=== PATIENT | female | born 1950 | race Caucasian/White ===

== ENCOUNTER 2017-07-04 12:34 | Emergency (ER) | payer MEDICARE, SELFPAY ==
[2017-07-04 13:25] VITALS: BP 147/81; PULSE 76; RESP 18; TEMP 36.6; O2SAT 97; BMI 26.5
--- NOTE | 2017-07-04 13:33 | HMH.EDGENADL ---
ED Disposition Clinical Impression: Inner ear disease Disposition: Home, Self-Care Condition on Discharge: Fair Instructions: Vertigo Prescriptions: Meclizine HCl [Antivert 25mg tablet] 25 mg PO TID 30 Days #90 tablet Referrals: Dakota Osullivan MD [Primary Care Provider] - Time of Disposition: 15:16 - Critical Care Critical Care Time: No Attestation: On 07/04/17, the high probability of a clinically significant, sudden or life threatening deterioration of the following system(s) required my full and direct attention, intervention and personal management. The time I documented below is in addition to time spent performing reported procedures but includes the following listed in this critical care notation. Medical Decision Making Vital Signs: 07/04/17 13:25 Temperature 97.9 F Temperature Source Oral Pulse Rate [Right Brachial] 76 Respiratory Rate 18 Blood Pressure [Right Arm] 147/81 Blood Pressure Mean [Right Arm] 103 Blood Pressure Source [Right Arm] Automatic Cuff Blood Pressure Position [Right Arm] Supine 02 Sat by Pulse Oximetry 97 Oxygen Delivery Method Room Air - Lab Data Lab results reviewed: Yes: I reviewed the patient's lab results. Lab Results 07/04/17 14:05: WBC 8.7, RBC 4.54, Hgb 13.4, Hct 42.2, MCV 93.1, MCH 29.4, MCHC 31.6 L, RDW 14.0, Plt Count 274, MPV 8.0, Neut % (Auto) 78.0, Lymph % (Auto) 16.0, [place] % (Auto) 4.3, Eos % (Auto) 1.2, Baso % (Auto) 0.5, Neut # (Auto) 6.8, Lymph # (Auto) 1.4, [place] # (Auto) 0.4, Eos # (Auto) 0.1, Baso # (Auto) 0.0 07/04/17 14:05: Sodium 139, Potassium 3.4 L, Chloride 103, Carbon Dioxide 28, Anion Gap 11.4, BUN 11, Creatinine 0.83, Estimated Creat Clear 57, Estimated GFR > 60, Est GFR ( Amer) > 60, Glucose 143 H, Calcium 9.2, Total Bilirubin 0.3, AST 15, ALT 32, Alkaline Phosphatase 109, Total Protein 7.4, Albumin 3.6, Globulin 3.8 H, Albumin/Globulin Ratio 0.9 L 07/04/17 14:05: Influenza Type A Ag Negative, Influenza Type B Ag Negative Influenza A is positive Result diagrams: 07/04/17 14:05 07/04/17 14:05 Orders (Tests/Meds): ED MEDICATIONS Generic Name Dose Route Start Last Admin Trade Name Willy PRN Reason Stop Dose Admin Sodium Chloride 10 ml 07/04/17 13:57 Saline Flush 10ml Syringe IV 08/03/17 13:56 NEEDED PRN Maintain IV Site Discontinued Medications Generic Name Dose Route Start Last Admin Trade Name Freq PRN Reason Stop Dose Admin Sodium Chloride 0 ml 07/04/17 13:50 07/04/17 14:18 Sod Chloride 0.9% 1000ml Bag IV 07/04/17 13:51 1,000 ml BOLUS ONE Administration ORDERS Category Date Time Status Urinalysis and Microscopic Stat Lab 07/04/17 13:47 Ordered - CT Data CT Scan: Head Time Received: 15:[address] Reviewed: Yes: I have reviewed the patient's CT results, I have viewed the radiologist's interpretation Preliminary Findings: Normal/NAD - Mat Inquiry Pt receiving controlled substance: No Mat was queried for this patient: No General Adult HPI - General Chief complaint: Dizziness Stated complaint: dizzy Mode of Arrival: Ambulatory Source of Information: Patient, Relative Limitations: No Limitations Description of Symptoms (Recalled from ER Triage Doc. by RN): Pt reports sudden onset of dizziness approx 1 hour. Pt reports only other symptom is the back of her head feels heavy. - History of Present Illness HPI narrative: Pt was walking around [employer] and felt dizzy and when she tries to sit up she gets nauseated but has not had any vomiting or diarrhea. She reports she just flew back from [place] yesterday and may have aggravated her Inner Ear Disease and she feels she may be a little dehydrated as well. No abd pain and no LOC and no VEGA with this Onset (ago): hour(s) Location: head Radiation: non-radiation Severity: moderate Exacerbating factors: other (drinking) - Related Data Previous Rx's Medication Instructions Recorded Meclizine HCl [A
--- NOTE | 2017-07-04 13:39 | ED_ITS ---
ED Disposition Clinical Impression: Inner ear disease Disposition: Home, Self-Care Condition on Discharge: Fair Instructions: Vertigo Prescriptions: Meclizine HCl [Antivert 25mg tablet] 25 mg PO TID 30 Days #90 tablet Referrals: Dakota Osullivan MD [Primary Care Provider] - Time of Disposition: 15:16 - Critical Care Critical Care Time: No Attestation: On 07/04/17, the high probability of a clinically significant, sudden or life threatening deterioration of the following system(s) required my full and direct attention, intervention and personal management. The time I documented below is in addition to time spent performing reported procedures but includes the following listed in this critical care notation. Medical Decision Making Vital Signs: 07/04/17 13:25 Temperature 97.9 F Temperature Source Oral Pulse Rate [Right Brachial] 76 Respiratory Rate 18 Blood Pressure [Right Arm] 147/81 Blood Pressure Mean [Right Arm] 103 Blood Pressure Source [Right Arm] Automatic Cuff Blood Pressure Position [Right Arm] Supine 02 Sat by Pulse Oximetry 97 Oxygen Delivery Method Room Air - Lab Data Lab results reviewed: Yes: I reviewed the patient's lab results. Lab Results 07/04/17 14:05: WBC 8.7, RBC 4.54, Hgb 13.4, Hct 42.2, MCV 93.1, MCH 29.4, MCHC 31.6 L, RDW 14.0, Plt Count 274, MPV 8.0, Neut % (Auto) 78.0, Lymph % (Auto) 16.0, [place] % (Auto) 4.3, Eos % (Auto) 1.2, Baso % (Auto) 0.5, Neut # (Auto) 6.8 , Lymph # (Auto) 1.4, [place] # (Auto) 0.4, Eos # (Auto) 0.1, Baso # (Auto) 0.0 07/04/17 14:05: Sodium 139, Potassium 3.4 L, Chloride 103, Carbon Dioxide 28, Anion Gap 11.4, BUN 11, Creatinine 0.83, Estimated Creat Clear 57, Estimated GFR > 60, Est GFR ( Amer) > 60, Glucose 143 H, Calcium 9.2, Total Bilirubin 0.3, AST 15, ALT 32, Alkaline Phosphatase 109, Total Protein 7.4, Albumin 3.6, Globulin 3.8 H, Albumin/Globulin Ratio 0.9 L 07/04/17 14:05: Influenza Type A Ag Negative, Influenza Type B Ag Negative Influenza A is positive Result diagrams: 07/04/17 14:05 07/04/17 14:05 Orders (Tests/Meds): ED MEDICATIONS Generic Name Dose Route Start Last Admin Trade Name Freq PRN Reason Stop Dose Admin Sodium Chloride 10 ml 07/04/17 13:57 Saline Flush 10ml Syringe IV 08/03/17 13:56 NEEDED PRN Maintain IV Site Discontinued Medications Generic Name Dose Route Start Last Admin Trade Name Freq PRN Reason Stop Dose Admin Sodium Chloride 0 ml 07/04/17 13:50 07/04/17 14:18 Sod Chloride 0.9% 1000ml Bag IV 07/04/17 13:51 1,000 ml BOLUS ONE Administration ORDERS Category Date Time Status Urinalysis and Microscopic Stat Lab 07/04/17 13:47 Ordered - CT Data CT Scan: Head Time Received: 15:[address] Reviewed: Yes: I have reviewed the patient's CT results, I have viewed the radiologist's interpretation Preliminary Findings: Normal/NAD - Mat Inquiry Pt receiving controlled substance: No Mat was queried for this patient: No General Adult HPI - General Chief complaint: Dizziness Stated complaint: dizzy Mode of Arrival: Ambulatory Source of Information: Patient, Relative Limitations: No Limitations Description of Symptoms (Recalled from ER Triage Doc. by RN): Pt reports sudden onset of dizziness approx 1 hour. Pt reports only ot
--- NOTE | 2017-07-04 13:47 | CT_ITS ---
CT head/brain wo con HISTORY: Dizziness with nausea ITS.REASON: dizziness ORDERING PHYSICIAN: Prosper Gonsales PATIENT AGE: 67 years COMPARISON: None TECHNIQUE: Axial images obtained without contrast. Brain and bone windows reviewed. FINDINGS: No midline shift, mass effect, intracranial hemorrhage, hydrocephalus, or extra-axial fluid collection is evident. The calvarium has an unremarkable appearance. No mastoid effusion. No sinus air-fluid levels.. IMPRESSION: Negative CT head without contrast. No acute finding.
[2017-07-04 14:14] LABS: Basophils % 0.5 % (0.1-2.0); Eosinophils # 0.1 K/mm3 (0.0-0.4); Eosinophils % 1.2 % (0.1-12.0); Monocytes # 0.4 K/mm3 (0.1-1.0)
[2017-07-04 14:20] LABS: Hematocrit 42.2 % (37.0-47.0); Hemoglobin 13.4 g/dL (12.2-16.2); Lymphocytes # 1.4 K/mm3 (0.7-4.5); Mean Corpuscular HGB Conc 31.6 g/dL (31.8-35.4); Mean Corpuscular Hemoglobin 29.4 pg (27.0-31.2); Mean Corpuscular Volume 93.1 fl (81-99); Monocytes % 4.3 % (1.7-9.3); Neutrophils # 6.8 K/mm3 (1.8-7.8); Platelet Count 274 K/mm3 (142-424); Red Blood Count 4.54 M/mm3 (4.20-5.40); White Blood Count 8.7 K/mm3 (4.8-10.8)
[2017-07-04 14:25] LABS: Alanine Aminotransferase 32 U/L (12-78); Albumin Level 3.6 gm/dL (3.4-5.0); Albumin/Globulin Ratio 0.9 (1.1-1.8); Alkaline Phosphatase 109 U/L (46-116); Anion Gap 11.4 mEq/L (5-15); Aspartate Amino Transferase 15 U/L (15-37); Bilirubin,Total 0.3 mg/dL (0.2-1.0); Blood Urea Nitrogen 11 mg/dL (7-18); Calcium 9.2 mg/dL (8.5-10.1); Carbon Dioxide 28 mmol/L (21.0-32.0); Chloride 103 mmol/L (98-107); Creatinine Clearance Estimated 57 mL/min (0-300); Creatinine,Serum 0.83 mg/dL (0.55-1.02); Estimated Glomerular Filt Rate > 60 ml/min (>60); GFR (African American) > 60 ML/MIN (>60); Globulin 3.8 gm/dl (1.3-3.2); Glucose 143 mg/dL (74-106); Potassium 3.4 mmoL/L (3.5-5.1); Sodium 139 mmol/L (136-145); Total Protein,Serum 7.4 gm/dL (6.4-8.2)
[2017-07-04 15:42] LABS: Microscopic, Urine URINE MICROSCOPIC (MICROSCOPIC)
[2017-07-04 15:43] LABS: Appearance,Urine SL CLOUDY (Clear); Bilirubin,Urine Negative (Negative); Blood, Urine 1+ (Negative); Color,Urine YELLOW (Yellow); Glucose,Urine (UA) Negative (Negative); Ketones,Urine Negative (Negative); Leukocyte Esterase,Urine Negative (Negative); Nitrate,Urine Negative (Negative); Protein,Urine Negative (Negative); Urobilinogen,Urine 0.2 EU/dl (0.2)
[2017-07-04 15:51] VITALS: BP 141/75; PULSE 67; RESP 20; TEMP 36.7; O2SAT 99
[2017-07-04 15:56] LABS: Bacteria,Urine 4+ /lpf; RBC,Urine Occasional #/hpf (0-3)
== END 2017-07-04 15:40 | disposition home or self-care (01) ==
LOC: UTC 12:40 → ER 13:09
PROVIDERS: Emergency Provider General Practice; Family Provider Internal Medicine Adolescent Medicine; PCP Internal Medicine Adolescent Medicine
DX: H83.8X9 Other specified diseases of inner ear, unspecified ear (principal); I10 Essential (primary) hypertension
CPT/HCPCS: 70450; 80053; 81001; 85025; 87086; 87275; 87276; 96365; 99283

== ENCOUNTER 2017-09-06 09:55 | Emergency (ER) | payer MEDICARE, SELFPAY ==
[2017-09-06 10:10] VITALS: BP 140/86; PULSE 91; RESP 20; TEMP 36.8; O2SAT 98; BMI 26.5
--- NOTE | 2017-09-06 10:25 | HMH.EDUTC ---
[facility] [place] Disposition Clinical Impression: UTI (urinary tract infection) Qualifiers: Urinary tract infection type: site unspecified Hematuria presence: with hematuria Qualified Code(s): N39.0 - Urinary tract infection, site not specified; R31.9 - Hematuria, unspecified Sinusitis Qualifiers: Sinusitis location: other Chronicity: unspecified Qualified Code(s): J32.9 - Chronic sinusitis, unspecified Disposition: Home, Self-Care Condition on Discharge: Good Instructions: Sinusitis, Sinus Headache, DI for Sinusitis, Urinary Tract Infection Additional Instructions: *Increase fluids. Water not Soda or Tea *Start antibiotic immediately and be sure to take as ordered for the FULL length of time although you should start to see improvement over the next 48 hours *Pyridium as needed Remember this medication will turn your urine [place]. This is normal but it will stain what ever it gets on *You should not use Pyridium for more than 48 hours. If so , follow up with your primary physician to review urine culture and ensure that antibiotic is adequate for infection *Be SURE to follow up anytime for new or worsening symptoms. AND in 48 hours for urine culture results AND in 10-14 days to repeat UA to ensure infection is resolved and blood no longer present *Be sure to let your PCP know that we sent urine cultures from the [facility] so they can follow up to ensure that you area the on the correct antibiotic . Sinus infections may take 2-3 days to notice much improvement so be sure to use conservative measures as discussed for symptoms Flonase 2 spray in each nostril daily to help with nasal congestion, sinus an ear pressure/inflammation Lots of Fluids Sleep elevated Humidifer/vaporizer Prescriptions: cephALEXin [Keflex 500mg Cap] 500 mg PO Q12H #20 cap Fluticasone Propionate [Flonase 50mcg nasal spray 16gm] 2 spr NS DAILY #1 bottle Phenazopyridine HCl [Pyridium] 100 mg PO TID #6 tab Referrals: Mony Zabala APRN [Primary Care Provider] - Time of Disposition: 10:35 Medical Decision Making - Medical Records Medical records reviewed: Yes: I reviewed the patient's medical records. Vital Signs: 09/06/17 10:10 Temperature 98.2 F Temperature Source Temporal Artery Scan Pulse Rate [Right Brachial] 91 H Respiratory Rate 20 Blood Pressure [Right Arm] 140/86 Blood Pressure Mean [Right Arm] 104 Blood Pressure Source [Right Arm] Automatic Cuff Blood Pressure Position [Right Arm] Sitting 02 Sat by Pulse Oximetry 985 H Oxygen Delivery Method Room Air - Lab Data Lab results reviewed: Yes: I reviewed the patient's lab results. - Mat Inquiry Pt receiving controlled substance: No Mat was queried for this patient: No - Reevaluation(s) Time: 10:34 Reevaluation #1: Patient state that she is able to take Amoxicillin and the Cillin family that Augmentin gives her diarrhea she is not allergic and able to take Cephosporins without reaction [facility] [place] HPI - General Stated complaint: Possible UTI Mode of Arrival: Family Vehicle Source of Information: Patient Limitations: No Limitations Description of Symptoms (Recalled from Triage Doc. by RN): C/O POSSIBLE UTI AND SINUS PROBLEMS HEENT Symptoms (Recalled from RN notes): Yes (SINUS PROBLEMS) Resp Symptoms (Recalled from RN notes): No Skin Symptoms (Recalled from RN notes): No MS Symptoms (Recalled from RN notes): No Functional Status (Recalled from RN notes): N/A - History of Present Illness Provider Complaint: Patient state that she has has a history of UTI's State that she was also treated several weeks ago State that her sinuses has continued to get worse then a couple days ago she started having burning when she would urinate so she started taking AZO but neither one is feeling better so she came in to get checked - Related Data Home Medications Medication Instructions Recorded Confirmed Cyclobenzaprine HCl 5 mg PO DAILY 09/06/17 09/06/17 [Cyclobenzaprine 10mg Tab] Levocetirizine
[2017-09-06 10:29] LABS: Color,Urine Yellow (Yellow)
--- NOTE | 2017-09-06 10:29 | ED_ITS ---
[facility] [place] Clinical Impression: UTI (urinary tract infection) Qualifiers: Urinary tract infection type: site unspecified Hematuria presence: with hematuria Qualified Code(s): N39.0 - Urinary tract infection, site not specified ; R31.9 - Hematuria, unspecified Sinusitis Qualifiers: Sinusitis location: other Chronicity: unspecified Qualified Code(s): J32.9 - Chronic sinusitis, unspecified Disposition: Home, Self-Care Condition on Discharge: Good Instructions: Sinusitis, Sinus Headache, DI for Sinusitis, Urinary Tract Infection Additional Instructions: *Increase fluids. Water not Soda or Tea *Start antibiotic immediately and be sure to take as ordered for the FULL length of time although you should start to see improvement over the next 48 hours *Pyridium as needed Remember this medication will turn your urine [place]. This is normal but it will stain what ever it gets on *You should not use Pyridium for more than 48 hours. If so , follow up with your primary physician to review urine culture and ensure that antibiotic is adequate for infection *Be SURE to follow up anytime for new or worsening symptoms. AND in 48 hours for urine culture results AND in 10-14 days to repeat UA to ensure infection is resolved and blood no longer present *Be sure to let your PCP know that we sent urine cultures from the [facility] so they can follow up to ensure that you area the on the correct antibiotic . Sinus infections may take 2-3 days to notice much improvement so be sure to use conservative measures as discussed for symptoms Flonase 2 spray in each nostril daily to help with nasal congestion, sinus an ear pressure/inflammation Lots of Fluids Sleep elevated Humidifer/vaporizer Prescriptions: cephALEXin [Keflex 500mg Cap] 500 mg PO Q12H #20 cap Fluticasone Propionate [Flonase 50mcg nasal spray 16gm] 2 spr NS DAILY #1 bottle Phenazopyridine HCl [Pyridium] 100 mg PO TID #6 tab Referrals: Mony Zabala APRN [Primary Care Provider] - Time of Disposition: 10:35 Medical Decision Making - Medical Records Medical records reviewed: Yes: I reviewed the patient's medical records. Vital Signs: 09/06/17 10:10 Temperature 98.2 F Temperature Source Temporal Artery Scan Pulse Rate [Right Brachial] 91 H Respiratory Rate 20 Blood Pressure [Right Arm] 140/86 Blood Pressure Mean [Right Arm] 104 Blood Pressure Source [Right Arm] Automatic Cuff Blood Pressure Position [Right Arm] Sitting 02 Sat by Pulse Oximetry 985 H Oxygen Delivery Method Room Air - Lab Data Lab results reviewed: Yes: I reviewed the patient's lab results. - Mat Inquiry Pt receiving controlled substance: No Mat was queried for this patient: No - Reevaluation(s) Time: 10:34 Reevaluation #1: Patient state that she is able to take Amoxicillin and the Cillin family that Augmentin gives her diarrhea she is not allergic and able to take Cephosporins without reaction [facility] [place] - General Stated complaint: Possible UTI Mode of Arrival: Family Vehicle Source of Information: Patient Limitations: No Limitations Description of Symptoms (Recalled from Triage Doc. by RN): C/O POSSIBLE UTI AND SINUS PROBLEMS HEENT Symptoms (Recalled from RN notes): Yes (SINUS PROBLEMS) Resp Symptoms (Recalled from RN notes): No Skin Symptoms (Recalled from RN notes): No MS Symptoms (Recalled from RN notes): No Functional Status (Recalled from RN notes): N/A - History of Present Illness Provider Com
[2017-09-06 10:30] LABS: Apearance,Urine Clear (Clear); Bilirubin,Urine Negative (Negative); Blood, Urine 1+ (Negative); Glucose,Urine (UA) Negative (Negative); Ketones,Urine Negative (Negative); Protein,Urine Negative (Negative); Specific Gravity, Urine 1.015 (1.005-1.030); UTC Leukocyte Esterase,Urine 1+ (Negative); UTC Nitrate,Urine Positive (Negative); Urobilinogen,Urine 0.2 EU/dl (0.2)
[2017-09-06 10:41] VITALS: BP 142/84; PULSE 90; RESP 20; TEMP 36.7; O2SAT 98
== END 2017-09-06 10:43 | disposition home or self-care (01) ==
PROVIDERS: Emergency Provider Nurse Practitioner; Family Provider Internal Medicine Adolescent Medicine; PCP Nurse Practitioner Family
DX: N39.0 Urinary tract infection, site not specified (principal); J32.9 Chronic sinusitis, unspecified; Z88.1 Allergy status to other antibiotic agents; Z88.2 Allergy status to sulfonamides; I10 Essential (primary) hypertension; Z88.8 Allergy status to other drugs, medicaments and biological substances
CPT/HCPCS: G0463; 81003; 87086; 87088; 87186; 99202

== ENCOUNTER → 2018-08-31 09:45 | Outpatient (CLI) | payer MEDICARE, SELFPAY ==
--- NOTE | 2018-08-31 09:56 | XR_ITS ---
XR DEXA axial skeleton HISTORY: ITS.REASON: OSTEOPENIA ORDERING PHYSICIAN: Mony Zabala PATIENT AGE: 68 years COMPARISON: None FINDINGS: The BMD measured at the Forearm Radius 33% femoral neck is 0.678 g/cm squared with a T score of -2.4. This is considered Osteopenic according to the World Health Organization criteria. Fracture risk is Moderate. Treatment is advised. Mean density of the hips has a T score of -1.3. IMPRESSION: Osteopenia with moderate fracture risk. Treatment is advised. Suggest follow up exam August 2020
== END ==
PROVIDERS: PCP Nurse Practitioner Family; Visit Provider Nurse Practitioner Family
DX: M85.89 Other specified disorders of bone density and structure, multiple sites (principal)
CPT/HCPCS: 77080

== ENCOUNTER → 2018-11-11 13:03 | Outpatient (CLI) | payer MEDICARE, SELFPAY ==
--- NOTE | 2018-11-11 13:11 | XR_ITS ---
XR sacroiliac joint BI min 3V CLINICAL INDICATION: ITS.REASON: SACROILIAC JOINT PAIN ORDERING PHYSICIAN: Mony Zabala APRN PATIENT AGE: 68 years Comparison: None FINDINGS: The SI joints have an unremarkable appearance. No fusion or sclerosis. No lytic or blastic change. There has been prior posterior fixation of the lower lumbar spine with interpedicular screws present. IMPRESSION: Negative SI joints
== END ==
PROVIDERS: PCP Nurse Practitioner Family; Visit Provider Nurse Practitioner Family
DX: M53.3 Sacrococcygeal disorders, not elsewhere classified (principal)
CPT/HCPCS: 72202

== ENCOUNTER → 2018-12-06 09:57 | Outpatient (POV) | payer MEDICARE, SELFPAY ==
[2018-12-06 10:00] VITALS: BP 181/75; PULSE 112; RESP 18; O2SAT 98
--- NOTE | 2018-12-06 10:55 | HMH.PMCON ---
Assessment and Plan (1) Sacroiliitis Current visit: Yes Status: Acute Category: Medical Code(s): M46.1 - Sacroiliitis, not elsewhere classified Given the patient's symptoms, I think she would benefit will with SI joint injections. We will schedule the patient for bilateral SI joint injections. We will continue at home stretching program. Patient has been encouraged to limit her use of NSAIDs secondary to hematuria by her primary care physician. She has been instructed to the office with any concerns prior to her next appointment. I will follow-up with the patient after injection reassess her at that time. Patient may be a candidate for epidural injections in the future. Dr. Gutierres has reviewed this note and agrees with this plan of care. This note was dictated using voice recognition software and may contain errors or omissions HPI - Data of Consult Patient: new to practice Consult date: 12/06/18 Requesting Physician: Makenzie Ferrell APRN Primary Care Provider: Mony Zabala APRN - Consult Narrative Reason for consult: Low back pain, bilateral leg pain History of present illness: Ms. Garnica is a 68 year old female presents today for complaints of low back pain radiating to bilateral legs. She reports the pain gets worse with long periods of standing and getting. She rates her pain a 7 out of 10 today. The patient has tried NSAIDs, but has been encouraged to stop by her primary care physician secondary to hematuria. The patient is also performing a home stretching program. She says that she has had a recent infection and was given a Medrol Dosepak, began to feel relief from the back and leg pain a few days after the steroids. The pain did return. CC: Makenzie Ferrell APRN [facility] History I have reviewed the patient's past medical history: Yes Medical History: Reports:: Hyperlipidemia, Hypertension Denies:: Cancer, Diabetes Mellitus Type 1, Diabetes Mellitus Type 2, MRSA *Have you ever received a pneumonia vaccine?: Yes *Have you received a flu vaccine this season?: Yes Other Medical History: Reports: Arthritis Other Surgeries: Yes: Hysterectomy-Total Amputation: No Fractures: No - *Social History Smoking Status: Never smoker Alcohol Intake: never Substance Use Type: denies use *Occupational Status:: retired Housing: house Household Members: spouse *Travel in the last 8 weeks: None - Psychiatric History Expresses thoughts of harming self/others: None Suicide Plan Description: No Plan Family Hx:: Cancer, Heart Attack, Diabetes Review of Systems - Review of Systems ROS General: no recent weight change, no fever, no sleep disturbances Respiratory: no cough, no shortness of air, no recurring pulmonary infections Cardiovascular/Peripheral Vascular: No chest pain, No palpitations, no edema, no shortness of breath. Gastrointestinal: no incontinence, normal bowel movements reported Genitourinary: no incontinence Musculoskeletal: Back pain, right leg pain, left arm pain Psychiatric: normal mood/ affect, [denies depression], [denies anxiety] Neurological: [denies weakness in extremities], [denies balance issues] Meds Home Medications Medication Instructions Recorded Confirmed Type Cyclobenzaprine HCl 5 mg PO DAILY 09/06/17 11/09/18 History [Cyclobenzaprine 10mg Tab] Levocetirizine Dihydrochloride 10 mg PO DAILY 09/06/17 11/09/18 History Losartan Potassium 50 mg PO DAILY 09/06/17 11/09/18 History Omeprazole [Omeprazole 40mg 40 mg PO DAILY 09/06/17 11/09/18 History Capsule] Pravastatin Sodium [Pravachol 40mg 40 mg PO DAILY 09/06/17 11/09/18 History Tablet] Alendronate Sodium 70 mg PO WEEKLY 10/31/18 11/09/18 History Azithromycin [Z-Adriel 250mg Tab] 250 mg PO UD DOSE PK #6 tab 10/31/18 11/09/18 Rx Benzonatate [Tessalon Perle 100mg 100 mg PO TID PRN #30 cap 10/31/18 11/09/18 Rx Cap] Fluticasone Propionate [Flonase 2 spr NS DAILY #1 bottle 10/31/18 11/09/18
--- NOTE | 2018-12-06 11:00 | P.CONS_ITS ---
Assessment and Plan (1) Sacroiliitis Current visit: Yes Status: Acute Category: Medical Code(s): M46.1 - Sacroiliitis, not elsewhere classified Given the patient's symptoms, I think she would benefit will with SI joint injections. We will schedule the patient for bilateral SI joint injections. We will continue at home stretching program. Patient has been encouraged to limit her use of NSAIDs secondary to hematuria by her primary care physician. She has been instructed to the office with any concerns prior to her next appointment. I will follow-up with the patient after injection reassess her at that time. Patient may be a candidate for epidural injections in the future. Dr. Gutierres has reviewed this note and agrees with this plan of care. This note was dictated using voice recognition software and may contain errors or omissions HPI - Data of Consult Patient: new to practice Consult date: 12/06/18 Requesting Physician: Makenzie Ferrell APRN Primary Care Provider: Mony Zabala APRN - Consult Narrative Reason for consult: Low back pain, bilateral leg pain History of present illness: Ms. Garnica is a 68 year old female presents today for complaints of low back pain radiating to bilateral legs. She reports the pain gets worse with long periods of standing and getting. She rates her pain a 7 out of 10 today. The patient has tried NSAIDs, but has been encouraged to stop by her primary care physician secondary to hematuria. The patient is also performing a home stretching program. She says that she has had a recent infection and was given a Medrol Dosepak, began to feel relief from the back and leg pain a few days after the steroids. The pain did return. CC: Makenzie Ferrell APRN [facility] History I have reviewed the patient's past medical history: Yes Medical History: Reports:: Hyperlipidemia, Hypertension Denies:: Cancer, Diabetes Mellitus Type 1, Diabetes Mellitus Type 2, MRSA *Have you ever received a pneumonia vaccine?: Yes *Have you received a flu vaccine this season?: Yes Other Medical History: Reports: Arthritis Other Surgeries: Yes: Hysterectomy-Total Amputation: No Fractures: No - *Social History Smoking Status: Never smoker Alcohol Intake: never Substance Use Type: denies use *Occupational Status:: retired Housing: house Household Members: spouse *Travel in the last 8 weeks: None - Psychiatric History Expresses thoughts of harming self/others: None Suicide Plan Description: No Plan Family Hx:: Cancer, Heart Attack, Diabetes Review of Systems - Review of Systems ROS General: no recent weight change, no fever, no sleep disturbances Respiratory: no cough, no shortness of air, no recurring pulmonary infections Cardiovascular/Peripheral Vascular: No chest pain, No palpitations, no edema, no shortness of breath. Gastrointestinal: no incontinence, normal bowel movements reported Genitourinary: no incontinence Musculoskeletal: Back pain, right leg pain, left arm pain Psychiatric: normal mood/ affect, [denies depression], [denies anxiety] Neurological: [denies weakness in extremities], [denies balance issues] Meds Home Medications Medication Instructions Recorded Confirmed Type Cyclobenzaprine HCl 5 mg PO DAILY 09/06/17 11/09/18 History [Cyclobenzaprine 10mg Tab] Levocetirizine Dihydrochloride 10 mg PO DAILY 09/06/17 11/09/18 History Losartan Potassium 50 mg PO DAILY 09/06/17 11/09/18 History
== END ==
PROVIDERS: PCP Nurse Practitioner Family; Visit Provider Clinical Nurse Specialist Family Health
DX: M46.1 Sacroiliitis, not elsewhere classified (principal)
CPT/HCPCS: 99202

== ENCOUNTER → 2019-01-04 09:32 | Outpatient (POV) | payer MEDICARE, SELFPAY ==
[2019-01-04 09:39] VITALS: BP 139/93; PULSE 84; RESP 18; O2SAT 98; BMI 26.4
--- NOTE | 2019-01-04 09:52 | HMH.PAINSOAP ---
[facility] Pain Management SOAP Note Subjective:: 68-year-old white female who presents today for follow-up after bilateral SI joint injections. She reports that she had 95% relief from the injections. She rates her pain a 2 out of 10 today. Patient does state that she is still having some occasional pain in the early mornings when first waking up, but the pain lessens as the day goes on. She has been able to perform outdoor activities without pain. She is feeling much better today. Review of Systems General: No recent weight changes, no fever, no sleep disturbances Respiratory: No cough, no shortness of air, no recurring pulmonary infections Cardiovascular/peripheral vascular: No chest pain, no palpitations, no edema, no shortness of breath Gastrointestinal: No new onset incontinence, normal bowel movements reported Genitourinary: No new onset incontinence Musculoskeletal: Bilateral hip pain Psychiatric: Normal mood/affect Neurological: [Denies weakness in extremities], [denies balance issues] Objective:: Physical exam General: Alert and oriented x3, no acute distress, pleasant and cooperative, [on room air] Lungs: Respirations even and unlabored, symmetrical chest expansion Eyes: PERRL Musculoskeletal: Range of Motion to bilateral hips somewhat guarded secondary to pain, deep tendon reflexes normal, strength in upper and lower extremities [5/5], [abnormal gait noted] Neurological: Speech clear, or director equal, no gross sensory deficit Assessment:: Sacroiliitis Plan:: At last visit, we did discuss an SI belt. The patient says that she will purchase a belt to see if it helps with the pain in the early mornings. She does not feel like she needs any further injections at this time. She says she is doing well, overall. Patient would like to follow-up as needed. She is been instructed to call the office if she has any concerns.
--- NOTE | 2019-01-04 09:56 | P.CONS_ITS ---
[facility] Pain Management SOAP Note Subjective:: 68-year-old white female who presents today for follow-up after bilateral SI joint injections. She reports that she had 95% relief from the injections. She rates her pain a 2 out of 10 today. Patient does state that she is still having some occasional pain in the early mornings when first waking up, but the pain lessens as the day goes on. She has been able to perform outdoor activities without pain. She is feeling much better today. Review of Systems General: No recent weight changes, no fever, no sleep disturbances Respiratory: No cough, no shortness of air, no recurring pulmonary infections Cardiovascular/peripheral vascular: No chest pain, no palpitations, no edema, no shortness of breath Gastrointestinal: No new onset incontinence, normal bowel movements reported Genitourinary: No new onset incontinence Musculoskeletal: Bilateral hip pain Psychiatric: Normal mood/affect Neurological: [Denies weakness in extremities], [denies balance issues] Objective:: Physical exam General: Alert and oriented x3, no acute distress, pleasant and cooperative, [on room air] Lungs: Respirations even and unlabored, symmetrical chest expansion Eyes: PERRL Musculoskeletal: Range of Motion to bilateral hips somewhat guarded secondary to pain, deep tendon reflexes normal, strength in upper and lower extremities [5/5], [abnormal gait noted] Neurological: Speech clear, street cleaning equipment operator equal, no gross sensory deficit Assessment:: Sacroiliitis Plan:: At last visit, we did discuss an SI belt. The patient says that she will purchase a belt to see if it helps with the pain in the early mornings. She does not feel like she needs any further injections at this time. She says she is doing well, overall. Patient would like to follow-up as needed. She is been instructed to call the office if she has any concerns.
== END ==
PROVIDERS: PCP Nurse Practitioner Family; Visit Provider Clinical Nurse Specialist Family Health
DX: M46.1 Sacroiliitis, not elsewhere classified (principal)
CPT/HCPCS: 99212

== ENCOUNTER → 2019-05-31 11:09 | Outpatient (POV) | payer MEDICARE, SELFPAY ==
--- NOTE | 2019-05-31 11:37 | HMH.PAINSOAP ---
[facility] Pain Management SOAP Note Subjective:: Patient is a pleasant 69-year-old white female who presents today for low back pain with radiation into her bilateral buttocks and bilateral hips. Patient says that she has had increased pain over the last month. She underwent bilateral SI joint injections in the past and got 90 to 95% relief following the injections for up to 4 months. She currently rates her pain an 8 out of 10 today. 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 She says she spent a lot of time standing and cooking. Following her prolonged activity, patient says her pain increase. She says she is unable to stand for more than 5 minutes and she is also having difficulty walking upstairs. She is interested in injective therapy. She says she does have tenderness noted upon palpation of her low back area. Review of Systems General: No recent weight changes, no fever, no sleep disturbances Respiratory: No cough, no shortness of air, no recurring pulmonary infections Cardiovascular/peripheral vascular: No chest pain, no palpitations, no edema, no shortness of breath Gastrointestinal: No new onset incontinence, normal bowel movements reported Genitourinary: No new onset incontinence Musculoskeletal: Low back pain, bilateral buttock pain, bilateral hip pain Psychiatric: Normal mood/affect Neurological: [Denies weakness in extremities], [denies balance issues] Objective:: Physical exam General: Alert and oriented x3, no acute distress, pleasant and cooperative, [on room air] Lungs: Respirations even and unlabored, symmetrical chest expansion Eyes: PERRL Musculoskeletal: Flexion and extension of lumbar spine somewhat guarded secondary to pain, deep tendon reflexes normal, strength in upper and lower extremities [5/5], [abnormal gait noted], positive Michael test, positive distraction test, positive Avnna's test Neurological: Speech clear, glass melt operator equal, no gross sensory deficit Assessment:: Bilateral sacroiliitis Plan:: We will schedule the patient for bilateral SI joint injections. She does have notable point tenderness over her bilateral SI joints. She will continue with anti-inflammatories and a home stretching program. We will see her back in the clinic following her injections to reassess her symptoms. She has been instructed to contact the clinic if she has any concerns before her next appointment. Dr. Gutierres has reviewed this note and agrees with this plan of care. This note was dictated using voice recognition software and make contain errors or omissions. [facility] History I have reviewed the patient's past medical history: Yes Medical History: Reports:: Hyperlipidemia, Hypertension Denies:: Cancer, Diabetes Mellitus Type 1, Diabetes Mellitus Type 2, MRSA, Seizures *Have you ever received a pneumonia vaccine?: Yes *Have you received a flu vaccine this season?: No Other Medical History: Reports: Arthritis Other Surgeries: Yes: Hysterectomy-Total Amputation: No Fractures: No - *Social History Smoking Status: Never smoker Alcohol Intake: never Substance Use Type: denies use *Occupational Status:: other Housing: house Household Members: spouse *Travel in the last 8 weeks: None Family Hx:: Cancer, Heart Attack, Diabetes
[2019-05-31 11:38] VITALS: BP 151/85; PULSE 94; RESP 18; O2SAT 98; BMI 26.0
--- NOTE | 2019-05-31 11:40 | P.CONS_ITS ---
[facility] Pain Management SOAP Note Subjective:: Patient is a pleasant 69-year-old white female who presents today for low back pain with radiation into her bilateral buttocks and bilateral hips. Patient says that she has had increased pain over the last month. She underwent bilateral SI joint injections in the past and got 90 to 95% relief following the injections for up to 4 months. She currently rates her pain an 8 out of 10 today. 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 She says she spent a lot of time standing and cooking. Following her prolonged activity, patient says her pain increase. She says she is unable to stand for more than 5 minutes and she is also having difficulty walking upstairs. She is interested in injective therapy. She says she does have tenderness noted upon palpation of her low back area. Review of Systems General: No recent weight changes, no fever, no sleep disturbances Respiratory: No cough, no shortness of air, no recurring pulmonary infections Cardiovascular/peripheral vascular: No chest pain, no palpitations, no edema, no shortness of breath Gastrointestinal: No new onset incontinence, normal bowel movements reported Genitourinary: No new onset incontinence Musculoskeletal: Low back pain, bilateral buttock pain, bilateral hip pain Psychiatric: Normal mood/affect Neurological: [Denies weakness in extremities], [denies balance issues] Objective:: Physical exam General: Alert and oriented x3, no acute distress, pleasant and cooperative, [on room air] Lungs: Respirations even and unlabored, symmetrical chest expansion Eyes: PERRL Musculoskeletal: Flexion and extension of lumbar spine somewhat guarded secondary to pain, deep tendon reflexes normal, strength in upper and lower extremities [5/5], [abnormal gait noted], positive Michael test, positive distraction test, positive Vanna's test Neurological: Speech clear, tawer equal, no gross sensory deficit Assessment:: Bilateral sacroiliitis Plan:: We will schedule the patient for bilateral SI joint injections. She does have notable point tenderness over her bilateral SI joints. She will continue with anti-inflammatories and a home stretching program. We will see her back in the clinic following her injections to reassess her symptoms. She has been instructed to contact the clinic if she has any concerns before her next appointment. Dr. Gutierres has reviewed this note and agrees with this plan of care. This note was dictated using voice recognition software and make contain errors or omissions. [facility] History I have reviewed the patient's past medical history: Yes Medical History: Reports:: Hyperlipidemia, Hypertension Denies:: Cancer, Diabetes Mellitus Type 1, Diabetes Mellitus Type 2, MRSA, Seizures *Have you ever received a pneumonia vaccine?: Yes *Have you received a flu vaccine this season?: No Other Medical History: Reports: Arthritis Other Surgeries: Yes: Hysterectomy-Total Amputation: No Fractures: No - *Social History Smoking Status: Never smoker Alcohol Intake: never Substance Use Type: denies use *Occupational Status:: other Housing: house Household Members: spouse *Travel in the last 8 weeks: None Family Hx:: Cancer, Heart Attack, Diabetes
== END ==
PROVIDERS: PCP Nurse Practitioner Family; Visit Provider Clinical Nurse Specialist Family Health
DX: M46.1 Sacroiliitis, not elsewhere classified (principal)
CPT/HCPCS: 99212

== ENCOUNTER → 2019-08-02 08:59 | Outpatient (POV) | payer MEDICARE, SELFPAY ==
[2019-08-02 09:07] VITALS: BP 148/82; PULSE 96; RESP 18; O2SAT 98; BMI 26.4
--- NOTE | 2019-08-02 09:24 | P.CONS_ITS ---
[facility] Pain Management SOAP Note Subjective:: Patient is a pleasant 69-year-old white female who presents today for follow-up after bilateral SI joint injections. Overall patient is doing well rating her pain a 5 out of 10. She is continuing to exercise and utilizing her SI joint belt. ROS General: no recent weight change, no fever, no sleep disturbances Respiratory: no cough, no shortness of air, no recurring pulmonary infections Cardiovascular/Peripheral Vascular: No chest pain, No palpitations, no edema, no shortness of breath. Gastrointestinal: no new onset incontinence, normal bowel movements reported Genitourinary: no new onset incontinence Musculoskeletal: SI joint pain Psychiatric: normal mood/ affect Neurological: [denies new onset weakness in extremities], [denies new onset balance issues] Objective:: Physical Exam General: Alert and oriented x3, no acute distress, pleasant and cooperative, [on room air] Lungs: Resps E/U, Symmetrical chest expansion, Eyes: PERRL Musculoskeletal: Flexion and extension of lumbar spine somewhat guarded secondary to pain, deep tendon reflexes normal, strength in upper and lower extremities [5/5], normal gait noted Neurological: speech clear, tableau architect equal, no gross sensory deficits Assessment:: Sacroiliitis Plan:: We will see the patient back on an as-needed basis. Patient's been instructed to call when her pain returns. [facility] History I have reviewed the patient's past medical history: Yes Medical History: Reports:: Hyperlipidemia, Hypertension Denies:: Cancer, Diabetes Mellitus Type 1, Diabetes Mellitus Type 2, MRSA, Seizures *Have you ever received a pneumonia vaccine?: Yes *Have you received a flu vaccine this season?: Yes Other Medical History: Reports: Arthritis Other Surgeries: Yes: Hysterectomy-Total Amputation: No Fractures: No - *Social History Smoking Status: Never smoker Alcohol Intake: never Substance Use Type: denies use *Occupational Status:: other Housing: house Household Members: spouse *Travel in the last 8 weeks: None Family Hx:: Cancer, Heart Attack, Diabetes
== END ==
PROVIDERS: PCP Nurse Practitioner Family; Visit Provider Clinical Nurse Specialist Family Health
DX: M46.1 Sacroiliitis, not elsewhere classified (principal)
CPT/HCPCS: 99212

== ENCOUNTER → 2019-08-05 08:29 | Outpatient (CLI) | payer MEDICARE, SELFPAY ==
--- NOTE | 2019-08-05 08:41 | FL_ITS ---
PROCEDURE: FL UPPER GI ESOPHAGUS W/AIR CLINICAL INDICATION: Dysphagia, reflux COMPARISON: No exams were available for comparison TECHNIQUE: FLUOROSCOPY TIME : 1 minutes and 28 seconds FINDINGS: No hiatal hernia or mucosal lesions arm annular constricting lesions of the esophagus. There was a small amount of reflux noted. Degenerative changes are present in the cervical spine there is no evidence of hiatal hernia. No ulcer or mass evident. No mucosal abnormalities apparent. There is normal peristalsis. The duodenal C-loop is nondisplaced. IMPRESSION: Mild GE reflux otherwise negative upper GI with barium swallow Dictated by: Jared Bales MD 08/05/2019 10:50 Electronically signed by Jared Bales MD in [place] 08/05/2019 10:50
== END ==
PROVIDERS: PCP Nurse Practitioner Family; Visit Provider Nurse Practitioner Family
DX: R13.10 Dysphagia, unspecified (principal); K21.9 Gastro-esophageal reflux disease without esophagitis
CPT/HCPCS: 74221; 74240

== ENCOUNTER → 2019-12-02 08:17 | Outpatient (CLI) | payer MEDICARE, SELFPAY ==
[2019-12-02 14:18] LABS: Coronavirus 19 IgG Antibody Negative (Negative); Coronavirus 19 IgM Antibody Negative (Negative)
== END ==
PROVIDERS: Visit Provider Internal Medicine Gastroenterology
DX: Z01.818 Encounter for other preprocedural examination (principal)
CPT/HCPCS: 36415; 86328

== ENCOUNTER 2019-12-05 09:20 | Day surgery (SDC) | payer MEDICARE, SELFPAY ==
[2019-11-30 11:39] VITALS: BMI 28.3
--- NOTE | 2019-12-01 11:29 | SUR.PREOP ---
12/01/2019 @ 1130--PHONE CALL MADE TO PATIENT. PATIENT UNDERSTANDS THAT LAB WORK AND COVID TESTING NEEDS TO BE COMPLETED @ 0800 ON 12/02/2019. PATIENT UNDERSTANDS IF LAB WORK AND COVID-19 TESTS ARE NOT COMPLETED BY 12PM ON THAT DATE, THE SURGERY SCHEDULED WILL BE CANCELLED AND RESCHEDULED FOR ANOTHER TIME.
[2019-12-05] VITALS (7 sets, daily range): BP systolic 134–169; BP diastolic 71–99; PULSE 69–80; RESP 18; TEMP 36.4–36.7; O2SAT 95–100
--- NOTE | 2019-12-05 11:25 | HMH.PROC ---
[facility] Procedure Note Procedure Note:: Upper Endoscopy Procedure Report: Esophagogastroduodenoscopy with cold biopsies and TTS balloon dilation Endoscopost: Deangelo Corcoran II, MD Referring Physician: TERRELL Holder Date of Procedure: December 05, 2019 Equipment: Olympus GIF 180 standard upper endoscope Sedation: MAC sedation Indications: Mrs. Garnica is a 69-year-old female with a long history of GERD for which she is taking omeprazole 40 mg by mouth daily for many years. She has had mouth blistering and did see Dr. Abraham (ENT) with biopsies that were noncontributory. She does get some heartburn but no reflux. She gets moderate belching. She also reports some bloating, dyspepsia and epigastric discomfort. She has mild early satiety but no nausea. She has more recently noted some dysphagia and globus sensation. She has never had an EGD. Procedure: Prior to the procedure, a history and physical exam was performed, and patient's medications and allergies were reviewed. The risks, benefits and alternatives of the sedation and procedure were discussed with the patient. All questions were answered and informed consent was obtained. The patient was brought to the procedure room. Patient identification and proposed procedure were verified by the physician and the nurse. The patient was placed in a left lateral decubitus position and the scope was passed under direct vision. Throughout the procedure, the patient's blood pressure, pulse, and oxygen saturations were monitored continuously. The upper GI endoscopy was accomplished without difficulty. The patient tolerated the procedure well. Findings: The scope was passed directly into the upper esophagus and advanced to the third portion of the duodenum. The post bulbar duodenum and duodenal bulb were normal with normal mucosa and conniventes. There was mild duodenal lymphoid stasis. The scope was withdrawn through a normal duodenal bulb and pylorus into the stomach. There was some mild linear reactive gastropathy of the antrum and body. The remainder of the antrum, body and fundus of the stomach were grossly normal. Upon retroflexion there was no hiatal hernia. 2 biopsies were taken in the antrum and along the lesser curvature for histology to rule out gastritis and/or H pylori. The scope was then withdrawn into the esophagus. There was no evidence of reflux esophagitis or Blackman's. There was no Schatzki's ring. There were tertiary contractions and evidence of moderate esophageal dysmotility. The entire esophagus was dilated to 60 Finnish/20 mm with a TTS hydrostatic balloon. There was some spasm of the cricopharyngeus/increased UES resting tone. The remainder of the esophageal mucosa was normal. Impression: 1. Cricopharyngeal spasm status post dilation to 20 mm 2. Nonerosive GERD with moderate esophageal dysmotility 3. Linear reactive gastropathy Plan: I will follow-up the biopsies. We will discuss additional dietary measures and treatment options. I do feel that she has some functional GERD with cricopharyngeal spasm and globus sensation.
--- NOTE | 2019-12-05 11:51 | HMH.ANESCL ---
[facility] Anesthesia Checklist - Structural Data Admitted From: Home Planned Operative Procedure/s: egd Consent for Planned Operative Procedure(s) Verified: Yes - Additional verifications Anesthesia Reactions: No Hx Blood Transfusions: No - Airway Assessment C-Spine Mobility Assessed: Yes TMJ Mobility Assessed: Yes Dentition: Good Dentition - Neurological Assessment Level of Consciousness: Awake, Alert, Appropriate - Anesthesia Plan Anesthesia Risk discussed: Yes Anesthesia Plan: Verified ASA Class: II Anesthesia Type: MAC [facility] History I have reviewed the patient's past medical history: Yes Medical History: Reports:: Hyperlipidemia, Hypertension, MRSA (nose staff infect) Denies:: Cancer, Diabetes Mellitus Type 1, Diabetes Mellitus Type 2, Internal Pacemaker, Seizures *Have you ever received a pneumonia vaccine?: Yes *Have you received a flu vaccine this season?: Yes Other Medical History: Reports: Arthritis Anesthesia experience/problems:: none Other Surgeries: Yes: Hysterectomy-Total. No: Pacemaker Amputation: No Fractures: No - *Social History Educational Level: Attended College Smoking Status: Never smoker Alcohol Intake: never Substance Use Type: denies use *Occupational Status:: retired Housing: house Household Members: spouse *Travel in the last 8 weeks: None Family Hx:: Cancer, Diabetes, Heart Attack, Hyperlipidemia, Hypertension
== END 2019-12-05 12:25 | disposition home or self-care (01) ==
LOC: OUTP 09:23
PROVIDERS: PCP Nurse Practitioner Family; Visit Provider Internal Medicine Gastroenterology
PROC: 0DJ08ZZ Inspection of Upper Intestinal Tract, Via Natural or Artificial Opening Endoscopic (ICD-10-PCS; CPT 43235; principal; 2019-12-05 11:00)
DX: J39.2 Other diseases of pharynx (principal); K22.4 Dyskinesia of esophagus; K31.9 Disease of stomach and duodenum, unspecified; K21.9 Gastro-esophageal reflux disease without esophagitis; I10 Essential (primary) hypertension; E78.5 Hyperlipidemia, unspecified; G47.33 Obstructive sleep apnea (adult) (pediatric); Z80.9 Family history of malignant neoplasm, unspecified; Z82.49 Family history of ischemic heart disease and other diseases of the circulatory system; Z83.3 Family history of diabetes mellitus; Z88.1 Allergy status to other antibiotic agents; Z88.2 Allergy status to sulfonamides; Z91.09 Other allergy status, other than to drugs and biological substances
CPT/HCPCS: 43239; 43249; 88305; 88342; C1726

== ENCOUNTER → 2019-12-13 10:38 | Outpatient (POV) | payer MEDICARE, SELFPAY ==
[2019-12-13 11:10] VITALS: BP 173/85; PULSE 74; RESP 18; O2SAT 99; BMI 28.3
--- NOTE | 2019-12-13 12:49 | HMH.PAINSOAP ---
[facility] Pain Management SOAP Note Subjective:: Patient is a pleasant 69-year-old white female who presents today for follow-up. Patient is having left hip pain. She is extremely tender over the left greater trochanteric bursa. She also is having quite a bit of SI tenderness. She has a positive SI joint compression test a positive Vanna's test and a positive Michael test on the left side. Patient has had injections in the past for this getting 80% relief up to 4 months. We will move forward with another injection. ROS General: no recent weight change, no fever, no sleep disturbances Respiratory: no cough, no shortness of air, no recurring pulmonary infections Cardiovascular/Peripheral Vascular: No chest pain, No palpitations, no edema, no shortness of breath. Gastrointestinal: no new onset incontinence, normal bowel movements reported Genitourinary: no new onset incontinence Musculoskeletal: Left hip pain left SI joint pain Psychiatric: normal mood/ affect, Neurological: [denies new onset weakness in extremities], [denies new onset balance issues] Objective:: Physical Exam General: Alert and oriented x3, no acute distress, pleasant and cooperative, [on room air] Lungs: Resps E/U, Symmetrical chest expansion, Eyes: PERRL Musculoskeletal: Flexion and extension of lumbar spine somewhat guarded secondary to pain, deep tendon reflexes normal, strength in upper and lower extremities [5/5], slightly antalgic gait noted extreme tenderness over left greater trochanteric bursa Neurological: speech clear, railroad mechanic equal, no gross sensory deficits Assessment:: Sacroiliitis, bursitis Plan:: We will plan a left SI joint injection left greater trochanteric bursa injection given the efficacy of injections in the past I do believe it would benefit her. I will follow-up with her afterwards reassess her symptoms at that time she has been instructed to call the office if she has any issues prior to her next appointment. Dr. Gutierres has reviewed this note and agrees with this plan of care. This note was dictated using voice recognition software and may contain errors or omissions [facility] History I have reviewed the patient's past medical history: Yes Medical History: Reports:: Hyperlipidemia, Hypertension, MRSA (nose staff infect) Denies:: Cancer, Diabetes Mellitus Type 1, Diabetes Mellitus Type 2, Internal Pacemaker, Seizures *Have you ever received a pneumonia vaccine?: Yes *Have you received a flu vaccine this season?: Yes Other Medical History: Reports: Arthritis Other Surgeries: Yes: Hysterectomy-Total. No: Pacemaker Amputation: No Fractures: No - *Social History Smoking Status: Never smoker Alcohol Intake: never Substance Use Type: denies use *Occupational Status:: other Housing: house Household Members: spouse *Travel in the last 8 weeks: None Family Hx:: Cancer, Diabetes, Heart Attack, Hyperlipidemia, Hypertension
== END ==
PROVIDERS: PCP Nurse Practitioner Family; Visit Provider Clinical Nurse Specialist Family Health
DX: M46.1 Sacroiliitis, not elsewhere classified (principal); M71.9 Bursopathy, unspecified
CPT/HCPCS: 99212

== ENCOUNTER 2019-12-23 13:01 | Day surgery (SDC) | payer MEDICARE, SELFPAY ==
[2019-12-23 13:47] VITALS: BP 145/86; PULSE 98; RESP 18; TEMP 36.6; O2SAT 98; BMI 28.3
[2019-12-23 14:28] VITALS: BP 125/85; PULSE 79; RESP 18
[2019-12-23 14:29] VITALS: BP 125/89; PULSE 89; RESP 18; O2SAT 98
--- NOTE | 2019-12-23 14:29 | P.PCN_ITS ---
- Procedure Date: 12/23/19 Time: 14:29 Anesthesiologist:: Valente Gutierres MD Complications:: None Pre-procedure Diagnosis:: Trochanteric bursitis and sacroiliitis Post-procedure Diagnosis:: Same Indications for Procedure:: This patient is a pleasant 69-year-old white female who we are treating for left-sided hip pain. She is tender over the left greater trochanter and left SI joint. She is done well with previous SI joint injections. We will do a left SI joint injection and a left trochanteric bursa injection today. Procedure Details:: Left SI joint injection under fluoroscopy Informed consent was obtained and the risks and benefits of the procedure was explained to the patient. Patient was taken to the procedure room. Patient was placed prone on the procedure table. The left hip was prepped using ChloraPrep. The skin and subcutaneous tissues were anesthetized using lidocaine. I placed a 22-gauge spinal needle into the inferior aspect of the left SI joint. Needle placement was confirmed with dye. After this we injected 5 mL bupivacaine 0.25% and Depo-Medrol 40 mg into the left SI joint. The patient tolerated the procedure well with no complication. Left trochanteric bursa injection under fluoroscopy informed consent was obtained and the risk and benefits of the procedure was explained to the patient. The patient was taken to procedure room and placed prone on the procedure table. The left hip was prepped using ChloraPrep. The skin and subcutaneous tissues were anesthetized using lidocaine. I placed a 22- gauge spinal needle under fluoroscopic guidance and advanced until it contacted the left greater trochanter. Needle placement was confirmed with dye. After this we injected 5 mL bupivacaine 0.25% and Depo-Medrol 40 mg. Patient tolerated the procedure well with no complications. Plan and Disposition:: We will follow-up with her in 2 weeks. Will reevaluate symptoms at that time.
[2019-12-23 14:40] VITALS: BP 157/99; PULSE 87; RESP 20; O2SAT 96
== END 2019-12-23 14:40 | disposition home or self-care (01) ==
LOC: SC.PAINP 13:03
PROVIDERS: PCP Nurse Practitioner Family; Visit Provider Anesthesiology
DX: M46.1 Sacroiliitis, not elsewhere classified (principal); M70.62 Trochanteric bursitis, left hip; I10 Essential (primary) hypertension; K21.9 Gastro-esophageal reflux disease without esophagitis; Z90.710 Acquired absence of both cervix and uterus; Z80.9 Family history of malignant neoplasm, unspecified; Z82.49 Family history of ischemic heart disease and other diseases of the circulatory system; Z83.438 Family history of other disorder of lipoprotein metabolism and other lipidemia; Z88.1 Allergy status to other antibiotic agents; Z88.2 Allergy status to sulfonamides; Z88.8 Allergy status to other drugs, medicaments and biological substances; Z79.899 Other long term (current) drug therapy
CPT/HCPCS: 20610; 27096; 77002; G0260; J1030; Q9966

== ENCOUNTER → 2020-01-02 09:56 | Outpatient (POV) | payer MEDICARE, SELFPAY ==
[2020-01-02 10:16] VITALS: BP 156/85; PULSE 82; RESP 18; O2SAT 99; BMI 28.3
--- NOTE | 2020-01-02 10:35 | P.CONS_ITS ---
[facility] Pain Management SOAP Note Subjective:: Patient is a pleasant 69-year-old white female who we are treating for left- sided hip pain. Patient had a left SI joint injection left greater trochanteric bursa injection. She stated helped for a minimal amount of time she is now having extreme pain in the left side of her back radiating down her left leg. Patient had a fusion in the past. She has no updated imaging. The pain does stop at the knee and does not continue on. Patient and I discussed getting an updated MRI of her low back. We also discussed doing a short round of prednisone and methocarbamol. ROS General: no recent weight change, no fever, no sleep disturbances Respiratory: no cough, no shortness of air, no recurring pulmonary infections Cardiovascular/Peripheral Vascular: No chest pain, No palpitations, no edema, no shortness of breath. Gastrointestinal: no new onset incontinence, normal bowel movements reported Genitourinary: no new onset incontinence Musculoskeletal: Left hip pain left SI joint pain Psychiatric: normal mood/ affect, Neurological: [denies new onset weakness in extremities], [denies new onset balance issues] Objective:: Physical Exam General: Alert and oriented x3, no acute distress, pleasant and cooperative, [on room air] Lungs: Resps E/U, Symmetrical chest expansion, Eyes: PERRL Musculoskeletal: Flexion and extension of lumbar spine somewhat guarded secondary to pain, deep tendon reflexes normal, strength in upper and lower extremities [5/5], [abnormal gait noted] Neurological: speech clear, insulator apprentice equal, no gross sensory deficits Assessment:: Postlaminectomy syndrome, sacroiliitis, bursitis Plan:: We will plan a lumbar MRI for the patient. We will also give her prednisone 20 mg 1 p.o. twice daily for 5 days along with methocarbamol 500 mg 1 p.o. twice daily as needed. Patient is not been notified to discontinue her Flexeril. I will follow-up with her after MRI reassess her symptoms at that time she has been instructed to call the office if she has any issues prior to her next appointment. Dr. Gutierres has reviewed this note and agrees with this plan of care. This note was dictated using voice recognition software and may contain errors or omissions [facility] History I have reviewed the patient's past medical history: Yes Medical History: Reports:: Hyperlipidemia, Hypertension, MRSA (nose staff infect) Denies:: Cancer, Diabetes Mellitus Type 1, Diabetes Mellitus Type 2, Internal Pacemaker, Seizures *Have you ever received a pneumonia vaccine?: Yes *Have you received a flu vaccine this season?: Yes Other Medical History: Reports: Arthritis Other Surgeries: Yes: Colonoscopy, EGD, Hysterectomy-Total, Hysterectomy- Partial. No: Pacemaker Amputation: No Fractures: No - *Social History Smoking Status: Never smoker Alcohol Intake: never Substance Use Type: denies use *Occupational Status:: other Housing: house Household Members: none *Travel in the last 8 weeks: None Family Hx:: Cancer, Heart Attack, Hyperlipidemia, Hypertension
== END ==
PROVIDERS: PCP Nurse Practitioner Family; Visit Provider Clinical Nurse Specialist Family Health
DX: M96.1 Postlaminectomy syndrome, not elsewhere classified (principal); M46.1 Sacroiliitis, not elsewhere classified; M71.9 Bursopathy, unspecified
CPT/HCPCS: 99212

== ENCOUNTER → 2020-01-09 07:40 | Outpatient (CLI) | payer MEDICARE, SELFPAY ==
--- NOTE | 2020-01-09 07:46 | MR_ITS ---
PROCEDURE: MR LUMBAR SPINE WO CON CLINICAL INDICATION: BACK PAIN HX back surgery in 2009. LT hip and leg pain. Symptoms X 2 weeks. No prior. COMPARISON: No exams were available for comparison TECHNIQUE: Standard multiplanar multiecho sequences are performed without contrast. 3-D MIP and myelographic images are also rendered and reviewed FINDINGS: There is mild lumbar scoliosis convex right. The spinal cord ends at the L1 level. L2-L3: Unremarkable. L3-L4: Prominent bulging disc is present. There is a medium to large left paracentral disc herniation herniation with superior extrusion of the disc . The disc is extruded superiorly by 16 mm causing severe left-sided foraminal narrowing and left lateral recess narrowing. There is canal stenosis secondary to the disc and facet and ligamentum hypertrophy. The canal measures approximately 10 mm. There is also right lateral recess narrowing from the facet and ligamentum hypertrophy and mild to moderate right foraminal narrowing. There is degenerative disc disease at this level. There are inter pedicular screws at L4-5 me from prior posterior fusion with degenerative disc disease. L5-S1: Facet ligamentum hypertrophy with moderate bilateral foraminal narrowing IMPRESSION: 1. L3-L4: Prominent bulging disc is present. There is a medium to large left paracentral disc herniation herniation with superior extrusion of the disc . The disc is extruded superiorly by 16 mm causing severe left-sided foraminal narrowing and left lateral recess narrowing. There is canal stenosis secondary to the disc and facet and ligamentum hypertrophy. The canal measures approximately 10 mm. There is also right lateral recess narrowing from the facet and ligamentum hypertrophy and mild to moderate right foraminal narrowing. There is degenerative disc disease at this level. 2. Postsurgical changes at L4-5 with bilateral foraminal narrowing Dictated by: Jared Bales MD 01/10/2020 09:22 Electronically signed by Jared Bales MD in [place] 01/10/2020 09:22
== END ==
PROVIDERS: PCP Nurse Practitioner Family; Visit Provider Clinical Nurse Specialist Family Health
DX: M54.5 Low back pain (principal)
CPT/HCPCS: 72148; 76376

== ENCOUNTER → 2020-01-16 09:57 | Outpatient (POV) | payer MEDICARE, SELFPAY ==
[2020-01-16 11:23] VITALS: BP 178/93; PULSE 100; RESP 18; O2SAT 98; BMI 28.3
--- NOTE | 2020-01-16 11:35 | HMH.PAINSOAP ---
[facility] Pain Management SOAP Note Subjective:: Patient is a pleasant 69-year-old white female who presents today for follow-up after MRI. She has been treated for low back pain radicular pain into her left leg causing numbness and tingling. Patient also says that she has a chronic dull ache into her left leg.. Patient has had injections and has not gotten any relief. She was given prednisone in the past, however, she says she did not sleep for days due to the prednisone. She says she did not get any relief to her low back pain as well. She rates her pain an 8 out of 10 today. She is currently undergoing water aerobics and says this does give her some relief, however, her pain immediately returned after getting out of the water. She has had a lumbar fusion to L4-L5 with Dr. Sheridan in the past. She is here to discuss her MRI results and discuss a further plan of care. Review of Systems General: No recent weight changes, no fever, no sleep disturbances Respiratory: No cough, no shortness of air, no recurring pulmonary infections Cardiovascular/peripheral vascular: No chest pain, no palpitations, no edema, no shortness of breath Gastrointestinal: No new onset incontinence, normal bowel movements reported Genitourinary: No new onset incontinence Musculoskeletal: Pain, left leg pain Psychiatric: Normal mood/affect Neurological: [Denies weakness in extremities], [denies balance issues] Objective:: Physical exam General: Alert and oriented x3, no acute distress, pleasant and cooperative, [on room air] Lungs: Respirations even and unlabored, symmetrical chest expansion Eyes: PERRL Musculoskeletal: Flexion and extension of lumbar spine somewhat guarded secondary to pain, deep tendon reflexes normal, strength in upper and lower extremities [5/5], [abnormal gait noted] Neurological: Speech clear, outdoor adventure leader equal, no gross sensory deficit Assessment:: Degenerative disc disease lumbar spine with lumbar radiculopathy symptoms, herniated disc at L3-L4 Plan:: We will plan to send the patient for neurological consult with Dr. Sheridan. She has seen him in the past. She now did discuss the results of her MRI. She is in agreement she would like to proceed with neurological consult. We will follow-up with her after she sees Dr. Sheridan. She has been instructed to contact the clinic if she has any concerns before next appointment. The patient and I specifically discussed risk factors for COVID19. These risks include, but are not limited to age greater than 60, heart or lung disease, diabetes, immunosuppression, and travel. We also discussed NSAIDs may worsen COVID19 infection or symptoms. Patient should not use NSAIDs to treat COVID19 signs or symptoms. Patient was also informed that any type of corticosteroid of any form (oral or injection) will decrease the patient's immune system response and may increase the likelihood of COVID19 infection and symptoms[address]. Gutierres has reviewed this note and agrees with this plan of care. This note was dictated using voice recognition software and make contain errors or omissions. [facility] History I have reviewed the patient's past medical history: Yes Medical History: Reports:: Hyperlipidemia, Hypertension, MRSA (nose staff infect) Denies:: Cancer, Diabetes Mellitus Type 1, Diabetes Mellitus Type 2, Internal Pacemaker, Seizures *Have you ever received a pneumonia vaccine?: No *Have you received a flu vaccine this season?: No Other Medical History: Reports: Arthritis Other Surgeries: Yes: Colonoscopy, EGD, Hysterectomy-Total, Hysterectomy-Partial. No: Pacemaker Amputation: No Fractures: No - *Social History Smoking Status: Never smoker Alcohol Intake: never Substance Use Type: denies use *Occupational Status:: other Housing: house Household Members: none *Travel in the last 8 weeks: None Family Hx:: Cancer, Heart Attack, Hyperlipidemia, Hypertension
== END ==
PROVIDERS: PCP Nurse Practitioner Family; Visit Provider Clinical Nurse Specialist Family Health
DX: M51.16 Intervertebral disc disorders with radiculopathy, lumbar region (principal); M51.26 Other intervertebral disc displacement, lumbar region
CPT/HCPCS: 99212

== ENCOUNTER → 2020-05-26 09:08 | Outpatient (CLI) | payer MEDICARE, SELFPAY ==
[2020-05-26 10:42] LABS: Coronavirus 19 IgG Antibody Negative (Negative); Coronavirus 19 IgM Antibody Negative (Negative)
== END ==
PROVIDERS: Visit Provider Internal Medicine Gastroenterology
DX: Z01.812 Encounter for preprocedural laboratory examination (principal)
CPT/HCPCS: 36415; 86328

== ENCOUNTER 2020-05-28 08:24 | Day surgery (SDC) | payer MEDICARE, SELFPAY ==
[2020-05-21 12:51] VITALS: BMI 28.3
[2020-05-28 08:40] VITALS: BP 157/86; PULSE 91; RESP 18; TEMP 36.1; O2SAT 99
--- NOTE | 2020-05-28 09:04 | HMH.ANESCL ---
[facility] Anesthesia Checklist - Patient Identification Patient Identification: Arm Band, Verbal (Name & ) - Structural Data Admitted From: Home Planned Operative Procedure/s: colon Verified Documents: History and Physical - NPO Status Verified Time NPO: 00:00 - Additional verifications Patient : No Anesthesia Reactions: No Hx Blood Transfusions: No Blood Transfusion Reaction: No Cephalosporin Allergy: No Previous Colonoscopy: No - Cardiovascular Assessment Heart Sounds: S1 & S2 Pulse Strength: Baseline Pulse Rhythm: Regular Peripheral Edema: No - Airway Assessment C-Spine Mobility Assessed: Yes TMJ Mobility Assessed: Yes Dentition: Good Dentition - Neurological Assessment Level of Consciousness: Awake, Alert, Appropriate Hx Seizures: No Numbness or tingling in extremities: No - Anesthesia Plan Anesthesia Risk discussed: Yes Anesthesia Plan: Verified ASA Class: III Anesthesia Type: MAC [facility] History I have reviewed the patient's past medical history: Yes Medical History: Reports:: Hyperlipidemia, Hypertension, MRSA Denies:: Cancer, Diabetes Mellitus Type 1, Diabetes Mellitus Type 2, Internal Pacemaker, Seizures *Have you ever received a pneumonia vaccine?: Yes *Have you received a flu vaccine this season?: Yes Other Medical History: Reports: Arthritis Anesthesia experience/problems:: none Other Surgeries: Yes: Colonoscopy, EGD, Hysterectomy-Total, Hysterectomy-Partial. No: Pacemaker Amputation: No Fractures: No - *Social History Last grade of school completed: High school graduate Smoking Status: Never smoker Alcohol Intake: never Substance Use Type: denies use *Occupational Status:: retired Housing: house Household Members: none *Travel in the last 8 weeks: None Family Hx:: Cancer, Heart Attack, Hyperlipidemia, Hypertension
[2020-05-28 09:18] VITALS: O2SAT 98
--- NOTE | 2020-05-28 09:49 | HMH.PROC ---
[facility] Procedure Note Procedure Note:: Colonoscopy Procedure Report: Colonoscopy with cold snare polypectomy Endoscopist: Deangelo Corcoran II, MD Referring physician: TERRELL Holder Date of Procedure: May 28, 2020 Equipment: Olympus 180 variable stiffness pediatric colonoscope Sedation: MAC sedation Indication: Mrs. Garnica is a 70-year-old female who is here for follow-up high risk screening/surveillance colonoscopy. The patient does have a strong family history and her brother had colon cancer in his 60s. The patient did have an EGD with me earlier this year because of reflux, bloating and dyspepsia. She also had obstipation. Her bowel function has improved with the fiber bowel regimen (combined MiraLAX plus Citrucel). She reports no abdominal pain, weight loss, change in her bowel habits or rectal bleeding. Procedure: Prior to the procedure, a history and physical exam was performed, and patient's medications and allergies were reviewed. The risks, benefits and alternatives of the sedation and procedure were discussed with the patient. All questions were answered and informed consent was obtained. The patient was brought to the procedure room. Patient identification and proposed procedure were verified by the physician and the nurse. The patient was placed in a left lateral decubitus position and the scope was passed under direct vision. Throughout the procedure, the patient's blood pressure, pulse, and oxygen saturations were monitored continuously. The colonoscopy was accomplished without difficulty. The patient tolerated the procedure well. Findings: On digital rectal examination there was normal rectal tone. There were no external hemorrhoids. The colonoscope was introduced through the anal canal to the rectum and advanced to the cecum. The ileocecal valve and appendiceal orifice were identified. The scope was advanced a short distance into the ileum which appeared grossly normal. The scope was then withdrawn into the colon. There were 2 colon polyps (cecum x1 (12 mm with mucus cap?probable serrated adenoma) and transverse x1 (4 mm)) which were both removed via cold snare polypectomy. The remainder of the cecum, ascending and transverse colon were normal. There were scattered diverticuli throughout the descending and sigmoid colon (LEFT colon). The rectum itself was normal. Upon retroflexion within the rectum there were grade 1 internal hemorrhoids. The preparation was excellent throughout with [place] Preparation Score of 9. The cecal time was 12 minutes. Impression: 1. Colonic polyps x2 2. Left-sided diverticulosis 3. Grade 1 internal hemorrhoids Plan: I will follow up the polyp pathology and recommend repeat colonoscopy again in 5 years based upon the patient's family history and the present adenomatous polyp histology. I would encourage the fiber bowel regimen (MiraLAX plus Citrucel combined) on a long-term daily maintenance basis.
[2020-05-28 09:50] VITALS: BP 109/61; PULSE 83; RESP 12; TEMP 36.3; O2SAT 96
[2020-05-28 10:00] VITALS: BP 110/65; PULSE 77; RESP 16; O2SAT 95
[2020-05-28 10:10] VITALS: BP 126/78; PULSE 78; RESP 16; O2SAT 96
[2020-05-28 10:20] VITALS: BP 129/81; PULSE 78; RESP 16; TEMP 36.3; O2SAT 97
== END 2020-05-28 10:28 | disposition home or self-care (01) ==
LOC: OUTP 08:26
PROVIDERS: PCP Nurse Practitioner Family; Visit Provider Internal Medicine Gastroenterology
PROC: 0DJD8ZZ Inspection of Lower Intestinal Tract, Via Natural or Artificial Opening Endoscopic (ICD-10-PCS; CPT 45378; principal; 2020-05-28 09:30)
DX: Z12.11 Encounter for screening for malignant neoplasm of colon (principal); Z80.0 Family history of malignant neoplasm of digestive organs; K63.5 Polyp of colon; K57.30 Diverticulosis of large intestine without perforation or abscess without bleeding; K64.0 First degree hemorrhoids
CPT/HCPCS: 45385; 88305

== ENCOUNTER → 2020-12-13 11:24 | Outpatient (CLI) | payer MEDICARE, SELFPAY | PROVIDERS: Visit Provider Nurse Practitioner Family | DX: Z87.440 Personal history of urinary (tract) infections (principal); R82.90 Unspecified abnormal findings in urine | CPT/HCPCS: 87086 ==

== ENCOUNTER → 2021-01-23 07:49 | Outpatient (CLI) | payer MEDICARE, SELFPAY ==
[2021-01-23 08:12] LABS: Basophils # 0.1 K/mm3 (0-0.2); Basophils % 0.9 % (0.1-2.0); Eosinophils # 0.2 K/mm3 (0.0-0.4); Eosinophils % 2.5 % (0.1-12.0); Hemoglobin 14.6 g/dL (12.2-16.2); Lymphocytes # 2.3 K/mm3 (0.7-4.5); Lymphocytes % 32.9 % (10-50); Mean Corpuscular HGB Conc 32.5 g/dL (31.8-35.4); Mean Corpuscular Hemoglobin 29.3 pg (27.0-31.2); Mean Corpuscular Volume 90.1 fl (81-99); Mean Platelet Volume 7.7 fl (7.4-10.4); Monocytes # 0.6 K/mm3 (0.1-1.0); Monocytes % 8.8 % (1.7-9.3); Neutrophils # 3.8 K/mm3 (1.8-7.8); Neutrophils % 54.9 % (37.0-80.0); Platelet Count 315 K/mm3 (142-424); Red Blood Count 4.99 M/mm3 (4.20-5.40); Red Cell Distribution Width 14.1 % (11.5-17.5)
[2021-01-23 08:44] LABS: Alanine Aminotransferase 24 U/L (12-78); Albumin Level 4.3 g/dl (3.5-5.0); Albumin/Globulin Ratio 1.4 (1.1-1.8); Alkaline Phosphatase 74 U/L (38-126); Anion Gap 10.3 mEq/L (5-15); Aspartate Amino Transferase 27 U/L (14-36); Bilirubin,Total 0.5 mg/dl (0.2-1.3); Blood Urea Nitrogen 11 mg/dl (7-17); Calcium 9.7 mg/dl (8.4-10.2); Carbon Dioxide 32 mmol/L (22.0-30.0); Chloride 104 mmol/L (98-107); Chol/HDL Ratio 2.9 (1-3.5); Cholesterol 172 mg/dl (140-200); Estimated Glomerular Filt Rate 83 ml/min (>60); GFR (African American) 100 ML/MIN (>60); Glucose 102 mg/dl (74-100); HDL Cholesterol 59 mg/dl (40-60); Potassium 4.3 mmoL/L (3.5-5.1); Sodium 142 mmol/L (136-145); Total Protein,Serum 7.3 g/dl (6.3-8.2); Triglycerides 156 mg/dl (30-150); VLDL Cholesterol 31 mg/dL (0-40)
[2021-01-23 08:55] LABS: Direct LDL Cholesterol 74.15 mg/dL (100-129)
== END ==
PROVIDERS: Visit Provider Nurse Practitioner Family
DX: I10 Essential (primary) hypertension (principal); E78.2 Mixed hyperlipidemia
CPT/HCPCS: 36415; 80053; 80061; 85025

== ENCOUNTER → 2021-04-02 16:19 | Outpatient (CLI) | payer MEDICARE, SELFPAY | PROVIDERS: Visit Provider Nurse Practitioner Family | DX: R35.0 Frequency of micturition (principal) | CPT/HCPCS: 87086 ==

== ENCOUNTER → 2021-04-06 11:26 | Outpatient (CLI) | payer MEDICARE, SELFPAY ==
--- NOTE | 2021-04-06 11:32 | XR_ITS ---
PROCEDURE: XR KUB CLINICAL INDICATION: Right flank pain COMPARISON: No exams were available for comparison FINDINGS: There is a nonspecific nonobstructive bowel gas pattern. Gas is present in both large and small bowel without distension. Gas is present in the rectosigmoid region. There are postsurgical changes of the lumbar spine with prior fusion of L3-L4 and L5 with disc spacer devices. Minimal lumbar curvature convex right. There is a faint calcific density overlying the left L4 transverse process laterally measuring 2 mm and an additional calcific density overlying the S1 lateral element at the SI joint superiorly measuring 5 mm. Cannot exclude ureteral calculi on the left. A faint calcific density is present to the right of L4 at 2 mm. Osteitis pubis noted. IMPRESSION: 1. 2 mm calcification to the right of L4, 2 mm calcification along the left aspect of L4 transverse process and 5 mm calcification along the upper aspect of the sacrum on the left. Any of these could represent a ureteral calculus. CT may provide further evaluation. 2. Nonspecific bowel gas pattern without obstruction Dictated by: Jared Bales MD 04/08/2021 10:42 Jared Bales MD in [place] 04/08/2021 10:42
== END ==
PROVIDERS: PCP Nurse Practitioner Family; Visit Provider Nurse Practitioner Family
DX: R10.2 Pelvic and perineal pain (principal); R35.0 Frequency of micturition
CPT/HCPCS: 74018

== ENCOUNTER → 2021-08-28 14:30 | Outpatient (CLI) | payer MEDICARE, SELFPAY ==
[2021-08-28 15:08] LABS: Blood Urea Nitrogen 12 mg/dl (7-17); Estimated Glomerular Filt Rate 83 ml/min (>60); GFR (African American) 100 ML/MIN (>60)
== END ==
PROVIDERS: Visit Provider Nurse Practitioner Family
DX: M54.40 Lumbago with sciatica, unspecified side (principal); Z98.1 Arthrodesis status
CPT/HCPCS: 36415; 82565; 84520

== ENCOUNTER → 2021-09-02 14:49 | Outpatient (CLI) | payer MEDICARE, SELFPAY ==
--- NOTE | 2021-09-02 15:01 | MR_ITS ---
FINAL REPORT CLINICAL HISTORY: LUMBAGO WITH SCIATICA. prior hx 2 back surgeries 2009,2019. [id number] rt leg pain. tingling plantar surface of rt foot. no injury or trauma. prior mr 01-09-20 13ml prohance given. COMPARISON: 01/26/2020 FINDINGS: Multiplanar MR imaging of the lumbar spine was performed without and with contrast. On the sagittal T2-weighted images, disc degeneration is seen at multiple levels. There is fusion from L3-L5. The fusion at L3/4 is new. The vertebral alignment is normal. There is no evidence of fracture. The conus is seen at approximately the L1 level and has an unremarkable appearance. T12-L1: An annular bulge is present. There is no significant canal stenosis or neural foraminal narrowing. L1-2: An annular bulge is present. No significant canal stenosis or neuroforaminal narrowing is seen. L2-3: An annular bulge is present. Facet arthropathy is present with mild bilateral neural foraminal narrowing. L3-4: Note is made of interval L3 laminectomies and fusion. There has been interval resolution in the extruded disc at this level. There is contrast enhancement in the soft tissues posterior to the thecal sac consistent with postoperative change. L4-5: This level is fused. Note is made of L4 laminectomies with mild left neural foraminal narrowing. L5-S1: An annular bulge is present. Facet arthropathy and osteophytes are present. There is moderate bilateral neural foraminal narrowing. Note is made of mild spurring of the sacroiliac joints. IMPRESSION: Multilevel mild degenerative disc disease and spondylosis with areas of neural foraminal narrowing as described. New fusion at L3-4 with contrast enhancement in the soft tissues consistent with postoperative change. Reviewed, Interpreted and Dictated by Jose E Murphy III, MD Transcribed by Mago Srivastava Authenticated by Jose E Murphy III, MD on 09/03/2021 07:50:01 AM [facility]
== END ==
PROVIDERS: PCP Nurse Practitioner Family; Visit Provider Nurse Practitioner Family
DX: M54.40 Lumbago with sciatica, unspecified side (principal); Z98.1 Arthrodesis status
CPT/HCPCS: 72158; 76376; A9576

== ENCOUNTER 2021-10-03 08:00 | Outpatient (RCR) | payer MEDICARE, SELFPAY | END 2021-10-03 08:05 | disposition home or self-care (01) | LOC: PT 08:00 | PROVIDERS: Visit Provider Nurse Practitioner Family | DX: M54.40 Lumbago with sciatica, unspecified side (principal); Z98.1 Arthrodesis status; M51.36 Other intervertebral disc degeneration, lumbar region | CPT/HCPCS: 20561; 97010; 97014; 97110; 97163; G0283 ==

== ENCOUNTER 2021-11-13 13:55 | Emergency (ER) | payer MEDICARE, SELFPAY ==
--- NOTE | 2021-11-13 13:58 | XR_ITS ---
FINAL REPORT CLINICAL HISTORY: PAIN FINDINGS: 3 views of the left foot were obtained. There is no acute fracture or dislocation. The joint spaces are intact. The soft tissues are unremarkable. IMPRESSION: No acute process. Reviewed, Interpreted and Dictated by Jose E Murphy III, MD Transcribed by Luis Rosen Authenticated by Jose E Murphy III, MD on 11/13/2021 03:44:11 PM [facility]
--- NOTE | 2021-11-13 13:58 | XR_ITS ---
FINAL REPORT CLINICAL HISTORY: FALL FINDINGS: LEFT ANKLE: Three views of the left ankle were obtained. There is no acute fracture or dislocation. The joint spaces and mortise are intact. There is lateral soft tissue swelling. IMPRESSION: Swelling with no acute bony abnormality. Reviewed, Interpreted and Dictated by Jose E Murphy III, MD Transcribed by Luis Rosen Authenticated by Jose E Murphy III, MD on 11/13/2021 03:44:10 PM [facility]
[2021-11-13 14:45] VITALS: BP 141/89; PULSE 71; RESP 17; TEMP 36.9; O2SAT 97; BMI 23.8
--- NOTE | 2021-11-13 15:21 | HMH.EDUTC ---
[facility] [place] Disposition Clinical Impression: Ankle sprain Qualifiers: Encounter type: initial encounter Involved ligament of ankle: unspecified ligament Laterality: left Qualified Code(s): S93.402A - Sprain of unspecified ligament of left ankle, initial encounter Disposition: Home, Self-Care Condition on Discharge: Good Instructions: How To Perform RICE (Rest, Ice, Compress, Elevate), Ibuprofen Additional Instructions: *RICE, Rest the extremity, Ice 15-20 minutes 3-4 times daily, Compress- wear the sanju wrap as discussed as much as possible to help reduce swelling and pain, Elevate the extremity when at rest *Sanju wrap is for support and help control swelling, use it except in the shower. Be sure that is not to tight but not to loose either *Elevate when resting *Ibuprofen as directed on package every 6-8 hours as needed for pain an inflammation. If need something more can take Tylenol in between doses of Ibuprofen to help Immediately follow up with your family doctor for new or worsening of symptoms, or no noticeable improvement over the next 3-5 days Referrals: Mony Zabala APRN [Primary Care Provider] - As needed Time of Disposition: 15:51 Medical Decision Making - Mat Inquiry Pt receiving controlled substance: No Mat was queried for this patient: No Vital Signs: 11/13/21 14:45 Temperature 98.4 F Temperature Source Oral Pulse Rate [Right Brachial] 71 Respiratory Rate 17 Blood Pressure [Right Arm] 141/89 H Blood Pressure Mean [Right Arm] 106 Blood Pressure Source [Right Arm] Automatic Cuff Blood Pressure Position [Right Arm] Sitting 02 Sat by Pulse Oximetry 97 Oxygen Delivery Method Room Air - Radiology Data #1 Image(s): Ankle Image Reviewed: Yes I have reviewed radiologist's interpretation Preliminary Findings: No Fracture Seen IMPRESSION: Swelling with no acute bony abnormality. #2 Image(s): Foot/Toes Image Reviewed: Yes I have reviewed radiologist's interpretation Preliminary Findings: No Fracture Seen IMPRESSION: No acute process. [facility] [place] HPI - General Stated complaint: fall 11/12 lt foot pain Time Seen by Provider: 11/13/21 15:21 Mode of Arrival: Ambulatory Source of Information: Patient Limitations: No Limitations Description of Symptoms (Recalled from Triage Doc. by RN): PATIENT STATES SHE WALKED INTO A HOLE AND ROLLED HER LEFT ANKLE LAST NIGHT. SWELLING TO AREA HEENT Symptoms (Recalled from RN notes): No Resp Symptoms (Recalled from RN notes): No Skin Symptoms (Recalled from RN notes): No MS Symptoms (Recalled from RN notes): Yes Functional Status (Recalled from RN notes): WNL - History of Present Illness Provider Complaint: Patient states that she was walking yesterday and stepped into a hole and twisted her left ankle States that since then she has been having pain and swelling in her ankle States that she has been walking on it but it is a little sore - Related Data Home Medications Medication Instructions Recorded Confirmed Omeprazole [Omeprazole 40mg 40 mg PO DAILY 09/06/17 08/07/21 Capsule] Pravastatin Sodium [Pravachol 40mg 40 mg PO DAILY 09/06/17 08/07/21 Tablet] Alendronate Sodium 70 mg PO WEEKLY 10/31/18 08/07/21 Fluticasone Propionate [Flonase 2 spr NS DAILY 12/14/18 08/07/21 50mcg nasal spray 16gm] montelukast 10 mg tablet 10 mg PO QPM 06/30/19 08/07/21 Ergocalciferol (Vitamin D2) 5,000 unit PO BID 09/01/19 08/07/21 [Vitamin D] Vitamin B Complex 1 each PO DAILY 09/01/19 08/07/21 zinc 50 mg tablet 50 mg PO DAILY 09/24/20 08/07/21 levocetirizine 5 mg tablet 5 mg PO DAILY tab 02/05/21 08/07/21 losartan 100 mg tablet 100 mg PO DAILY tab 02/05/21 08/07/21 Previous Rx's Medication Instructions Recorded Methocarbamol [Robaxin 500mg Tab*] 500 mg PO BID PRN #60 tab 01/02/20 trazodone 50 mg tablet 50 mg PO HS #90 tab 08/07/21 Allergies Allergy/AdvReac Type Severity Reaction Status Date / Time amoxicillin [From AUGMENTIN] Allergy
[2021-11-13 15:45] VITALS: BP 141/89; PULSE 71; RESP 17; TEMP 36.9; O2SAT 97
== END 2021-11-13 15:50 | disposition home or self-care (01) ==
PROVIDERS: Emergency Provider Nurse Practitioner; PCP Nurse Practitioner Family
DX: S93.402A Sprain of unspecified ligament of left ankle, initial encounter (principal); W17.2XXA Fall into hole, initial encounter; Y92.89 Other specified places as the place of occurrence of the external cause
CPT/HCPCS: 73610; 73620; 99212; G0463

== ENCOUNTER 2021-12-15 08:01 | Emergency (ER) | payer MEDICARE, SELFPAY ==
--- NOTE | 2021-12-15 08:13 | XR_ITS ---
PROCEDURE INFORMATION: Exam: XR Chest Exam date and time: 12/15/2021 8:25 AM Age: 71 years old Clinical indication: Cough TECHNIQUE: Imaging protocol: Radiologic exam of the chest. Views: 2 views. COMPARISON: CR XR KUB 04/06/2021 11:34 AM FINDINGS: Lungs: Unremarkable. No consolidation. Pleural spaces: Unremarkable. No pleural effusion. No pneumothorax. Heart/Mediastinum: Unremarkable. No cardiomegaly. Bones/joints: Unremarkable. IMPRESSION: No acute findings.
[2021-12-15 08:20] VITALS: PULSE 72; RESP 17; TEMP 36.8; O2SAT 97; BMI 23.8
--- NOTE | 2021-12-15 08:36 | HMH.EDUTC ---
[facility] Disposition Clinical Impression: Laryngitis, Bronchitis Disposition: Home, Self-Care Condition on Discharge: Good Instructions: DI for Acute Bronchitis, DI for Laryngitis Additional Instructions: Drink plenty of fluids. Take the medications as directed. Follow up with your regular doctor. GO TO THE ER FOR ANY WORSENING SYMPTOMS Don't start the oral steroids until tomorrow, since you had the shot here today. The cough medication (promethazine dm) will make you drowsy, so don't drive or operate heavy machinery after taking it. Prescriptions: Promethazine/Dextromethorphan [Promethazine-Dm Syrup] 5 ml PO Q6HP PRN #240 ml PRN Reason: Cough Transmission Status: Received by [id number] methylPREDNISolone [Medrol] 4 mg PO DIRECTED 6 Days #21 packet Transmission Status: Received by [id number] guaiFENesin [Mucinex 600mg tablet] 1 - 2 tab PO BIDP PRN #30 tab PRN Reason: Congestion Transmission Status: [facility] Azithromycin [Z-Adriel 250mg Tab*] 250 mg PO UD DOSE PK #6 tab Transmission Status: [facility] Referrals: Mony Zabala APRN [Primary Care Provider] - Time of Disposition: 09:05 Medical Decision Making - Medical Records Medical records reviewed: No: I reviewed the patient's medical records. - Mat Inquiry Pt receiving controlled substance: No Vital Signs: 12/15/21 08:20 12/15/21 09:11 Temperature 98.2 F 98.2 F Temperature Source Oral Pulse Rate 72 Pulse Rate [Left Radial] 72 Respiratory Rate 17 17 Blood Pressure 151/85 H 02 Sat by Pulse Oximetry 97 - Lab Data Lab Results 12/15/21 08:12: Influenza Type A Ag Negative, Influenza Type B Ag Negative 12/15/21 08:15: Group A Strep Rapid Negative Orders (Tests/Meds): ED MEDICATIONS Discontinued Medications Generic Name Dose Route Start Last Admin Trade Name Freq PRN Reason Stop Dose Admin Ceftriaxone Sodium 1 gm 12/15/21 08:53 12/15/21 09:10 Ceftriaxone 1gm Vial IM 12/15/21 08:54 1 gm ONCE ONE Administration Lidocaine HCl 0 ml 12/15/21 08:53 12/15/21 09:11 Lidocaine 1% 5ml Pf Vial IM 12/15/21 08:54 2 ml ONCE ONE Administration Methylprednisolone Sodium Succinate 125 mg 12/15/21 08:53 12/15/21 09:04 Methylprednisolone Sod Succ 125mg Vial IM 12/15/21 08:54 125 mg ONCE ONE Administration ORDERS Category Date Time Status Full Resp Panel w/COVID ([facility]) Routine Lab 12/15/21 08:15 Received Strep Screen Confirmation Stat Micro 12/15/21 08:15 Received - Radiology Data #1 Image(s): Chest Image Reviewed: Yes I reviewed the patient's radiology image Preliminary Findings: No Infiltrates Seen [facility] HPI - General Stated complaint: loss of voice, sore throat Time Seen by Provider: 12/15/21 08:36 Description of Symptoms (Recalled from Triage Doc. by RN): patient comes in today with complaints of cough and loss of voice, this began yesterday morning. patient took an at home covid test yesterday as well and it was negative. patient got second covid booster on thursday. HEENT Symptoms (Recalled from RN notes): Yes Resp Symptoms (Recalled from RN notes): Yes Skin Symptoms (Recalled from RN notes): No MS Symptoms (Recalled from RN notes): No Functional Status (Recalled from RN notes): wnl - History of Present Illness Provider Complaint: She states that for the past 3 days she has had a nonproductive cough, scratchy sore throat, hoarse voice, and chest congestion. She denies any fever. She has taken home covid test that were negative twice in the past 2 days. - Related Data Home Medications Medication Instructions Recorded Confirmed Omeprazole [Omeprazole 40mg 40 mg PO DAILY 09/06/17 08/07/21 Capsule] Pravastatin Sodium [Pravachol 40mg 40 mg PO DAILY 09/06/17 08/07/21 Tablet] Alendronate Sodium 70 mg PO WEEKLY 10/31/18 08/07/21 Fluticasone Propionate [Flonase 2 spr NS DAILY 06
[2021-12-15 08:46] LABS: Strep Scrn Group A (Rapid) Negative (Negative)
[2021-12-15 08:56] LABS: Adenovirus,PCR Not Detected (NotDetected); Coronavirus 229E Not Detected (NotDetected); Coronavirus NL63 Not Detected (NotDetected); Coronavirus OC43 Not Detected (NotDetected); Coronovirus HKU1,PCR Not Detected (NotDetected); Human Metapneumovirus Not Detected (NotDetected); Rhinovirus/Enterovirus Not Detected (NotDetected)
[2021-12-15 08:57] LABS: Bordetella Pertussis Not Detected (NotDetected); Chlamydophila Pneumoniae, PCR Not Detected (NotDetected); Coronavirus 19, PCR Not Detected (NotDetected); Influenza A, PCR Not Detected (NotDetected); Influenza AH1, 2009 Not Detected (NotDetected); Influenza AH1, PCR Not Detected (NotDetected); Influenza AH3,PCR Not Detected (NotDetected); Influenza B, PCR Not Detected (NotDetected); Mycoplasma Pneumoniae, PCR Not Detected (NotDetected); Parainfluenza 1, PCR Not Detected (NotDetected); Parainfluenza 2, PCR Not Detected (NotDetected); Parainfluenza 3, PCR Not Detected (NotDetected); Parainfluenza 4, PCR Not Detected (NotDetected); Respiratory Syncytial Virus Not Detected (NotDetected)
[2021-12-15 09:11] VITALS: BP 151/85; PULSE 72; RESP 17; TEMP 36.8
[2021-12-15 09:20] LABS: UTC Influenza A Antigen Negative (Negative)
[2021-12-15 09:21] LABS: UTC Influenza B Antigen Negative (Negative)
== END 2021-12-15 09:19 | disposition home or self-care (01) ==
PROVIDERS: Emergency Provider Nurse Practitioner Family; PCP Nurse Practitioner Family
DX: J04.0 Acute laryngitis (principal); J40 Bronchitis, not specified as acute or chronic; K21.9 Gastro-esophageal reflux disease without esophagitis; I10 Essential (primary) hypertension
CPT/HCPCS: 71046; 87430; 87581; 87632; 87798; 87804; 96372; 99212; C9803; G0463; J0696; U0003; U0005

== ENCOUNTER → 2022-06-09 09:04 | Outpatient (CLI) | payer MEDICARE, SELFPAY ==
--- NOTE | 2022-06-09 09:11 | XR_ITS ---
FINAL REPORT TECHNIQUE: Bone densitometry calculations of the left forearm and hips were obtained. CLINICAL HISTORY: . post menopausal FINDINGS: DEXA BONE DENSITY AXIAL SKELETON Using the left forearm, the bone mineral density of the distal 1/3 is 0.506 g/cm2, corresponding to T-score of -3.1. Using the right hip, the bone mineral density of the femoral neck is 0.687 g/cm2, corresponding to a T-score of -1.5. Using the left hip, the bone mineral density of the femoral neck is 0.709 g/cm2, corresponding to a T-score of -1.3. NOTE: T-score: Standard deviation compared with peak bone mass of young adult mean. *Following the recommendations of the International Society of Bone Densitometry, classification of hip BMD is based on the lower of two T-scores; total hip or femoral neck. IMPRESSION: Osteoporosis: Lowest T-score is at or below -2.5. This patient's T-score meets the World Health Organization criteria for osteoporosis. FRAX not reported because patient is being treated for osteoporosis. Reviewed, Interpreted and Dictated by Jose E Murphy III, MD Transcribed by Mae Keen Authenticated and [facility]
== END ==
PROVIDERS: PCP Nurse Practitioner Family; Visit Provider Nurse Practitioner Family
DX: Z78.0 Asymptomatic menopausal state (principal)
CPT/HCPCS: 77080

== ENCOUNTER → 2022-06-27 11:42 | Outpatient (POV) | payer MEDICARE, SELFPAY | PROVIDERS: Visit Provider Internal Medicine Nephrology | DX: Z00.00 Encounter for general adult medical examination without abnormal findings (principal) ==

== ENCOUNTER → 2022-06-27 12:37 | Outpatient (CLI) | payer MEDICARE, SELFPAY ==
[2022-07-02 01:07] LABS: Tandem-R Ostase 12.2 ug/L (.)
[2022-07-03 20:25] LABS: C-Telopeptide Serum 123 pg/mL (.)
== END ==
PROVIDERS: PCP Nurse Practitioner Family; Visit Provider Internal Medicine Nephrology
DX: M81.0 Age-related osteoporosis without current pathological fracture (principal)
CPT/HCPCS: 36415; 82523; 84080

== ENCOUNTER 2023-04-11 15:23 | Emergency (ER) | payer MEDICARE, SELFPAY ==
[2023-04-11 15:30] VITALS: BP 196/101; PULSE 66; RESP 21; TEMP 36.7; O2SAT 96; BMI 25.0
--- NOTE | 2023-04-11 15:37 | EXP.UTC ---
Discharge Plan Disposition Patient Disposition: Home, Self-Care Condition: Good Prescriptions Prescriptions: New azithromycin [Zithromax Z-Adriel] 250 mg tablet See Rx Instructions .ROUTE .COMPLEX 5 Days Qty: 6 0RF Rx Instructions: For 250 mg dose pack: take 500 mg today (day 1), then 250 mg for 4 days (days 2-5) methylprednisolone [Medrol (Adriel)] 4 mg tablets,dose pack See Rx Instructions .Route .COMPLEX 6 Days Qty: 21 0RF Rx Instructions: taper pack; No Action montelukast [Singulair] 10 mg tablet 10 mg PO QPM zinc 50 mg tablet 50 mg PO DAILY levocetirizine 5 mg tablet 5 mg PO DAILY losartan 100 mg tablet 100 mg PO DAILY trazodone 50 mg tablet 50 mg PO HS Qty: 90 3RF pravastatin 40 MG tablet 40 mg PO DAILY Patient Comments: omeprazole 40 MG capsule,delayed release(DR/EC) 40 mg PO DAILY Patient Comments: fluticasone propionate 120 SPR/BOT bottle 2 spr intranasal DAILY Rx Instructions: each nostril alendronate 70 MG tablet 70 mg PO WEEKLY ergocalciferol (vitamin D2) 400 UNIT tablet 5,000 unit PO BID vitamin B complex 1 EACH tablet 1 each PO DAILY methocarbamol 500 MG tablet 500 mg PO BID PRN (Reason: spasms) Qty: 60 0RF Rx Instructions: stop taking flexeril promethazine-DM 120 ML syrup 5 ml PO Q6HP PRN (Reason: Cough) Qty: 240 0RF guaifenesin 600 MG tablet extended release 12hr 1 - 2 tab PO BIDP PRN (Reason: Congestion) Qty: 30 0RF Referrals Follow up/Referrals: Mony Zabala APRN [Primary Care Provider] - See instructions Activity Restrictions/Add. Instructions Additional Instructions/Restrictions: *Monitor Temp, Over the counter Motrin or Tylenol as directed/as needed Tylenol every 4 hours and Motrin every 6 hours (as long as your family doctor has told you that you can take it) for fever or pain. and straight to ER if unable to lower temp less than 101.0 after medication given *Warm salt water gargles may help to soothe the throat *Throat Lozenges? *Warm fluids like tea with honey may help to soothe the throat? *Sleep elevated *Humidifier/Vaporizer Take medication as prescribed Follow up IMMEDIATELY for new or worsening symptoms or no Noticeable improvement over the next 48-72 hours. 911 for difficulty breathing or swallowing Clinical Impressions Clinical Impression: Sinusitis Qualifiers: Sinusitis location: unspecified location Chronicity: unspecified Qualified Code(s): J32.9 - Chronic sinusitis, unspecified Instructions Patient Instructions: Sinusitis, DI for Sinusitis Discharge ED Provider: Melanie Garay [place] HPI General Stated complaint: runny nose, congestion, cough, sore throat Mode of Arrival: Ambulatory Source of Information: Patient Limitations: No Limitations Time Seen by Provider: 04/11/23 15:37 Description of Symptoms (Recalled from Triage Doc. by RN): PATIENT C/O CONGESTION, SINUS PRESSURE, RUNNY NOSE AND HEADACHE THAT STARTED LAST WEEK HEENT Symptoms (Recalled from RN notes): Yes Resp Symptoms (Recalled from RN notes): No Skin Symptoms (Recalled from RN notes): No MS Symptoms (Recalled from RN notes): No Functional Status (Recalled from RN notes): WNL History of Present Illness Provider Complaint: Patient states that she started feeling bad last week with sinus pain and pressure, head congestion runny nose at times, headache and pressure behind her eyes States that she thought she was having trouble with her allergies but today she thinks it may be her sinuses States that she has HTN and has been taking OTC decongestants and didnt realize it may make her blood pressure go up until this morning so she will stop taking them Related Data Home Medications Medication Instructions Recorded Confirmed omeprazole 40 mg capsule,delayed 40 mg PO DAILY Reflux/Acid reflux 09/06/17 08/06/22 release prav
[2023-04-11 15:41] VITALS: BP 196/101; PULSE 66; RESP 21; TEMP 36.7; O2SAT 96
[2023-04-11 15:50] VITALS: BP 187/103
== END 2023-04-11 15:59 | disposition home or self-care (01) ==
PROVIDERS: Emergency Provider Nurse Practitioner; PCP Nurse Practitioner Family
DX: J01.90 Acute sinusitis, unspecified (principal); I10 Essential (primary) hypertension; E78.5 Hyperlipidemia, unspecified; K21.9 Gastro-esophageal reflux disease without esophagitis
CPT/HCPCS: 99212; 99214; G0463

== ENCOUNTER → 2023-06-10 08:43 | Outpatient (CLI) | payer MEDICARE, SELFPAY ==
--- NOTE | 2023-06-10 08:50 | XR_ITS ---
FINAL REPORT CLINICAL HISTORY: Osteoporosis screening COMPARISON: 06/09/2022 FINDINGS: Using one third, the bone mineral density of the left forearm is 0.506 g/cm2, corresponding to T-score of -3.1, consistent with osteoporosis. Previously was 0.506 g/cm? with a T-score of -3.1. Using the left hip, the bone mineral density of the femoral neck is 0.733 g/cm2, corresponding to a T-score of -1.0, within normal limits. Previously was 0.709 g/cm? with a T-score of -1.3. Using the right hip, the bone mineral density of the femoral neck is 0.647 g/cm2, corresponding to a T-score of -1.8, consistent with osteopenia. Previously was 0.687 g/cm? with T-score of -1.5. FRAX not reported because patient being treated for osteoporosis. NOTE: T-score: Standard deviation compared with peak bone mass of young adult mean. *Following the recommendations of the International Society of Bone densitometry, classification of hip BMD is based on the lower of two T-scores; total hip or femoral neck. IMPRESSION: Diminished bone mineral density consistent with osteoporosis. Reviewed, Interpreted and Dictated by Serg Pandey MD Transcribed by Quita Beck Authenticated and [facility]
== END ==
PROVIDERS: PCP Nurse Practitioner Family; Visit Provider Internal Medicine Nephrology
DX: M81.0 Age-related osteoporosis without current pathological fracture (principal)
CPT/HCPCS: 77080

== ENCOUNTER 2023-08-07 10:33 | Outpatient (CLI) | payer MEDICARE, SELFPAY ==
[2023-08-07 12:28] LABS: Blood Urea Nitrogen 10 mg/dl (7-17); Calcium 9.4 mg/dl (8.4-10.2); Carbon Dioxide 29 mmol/L (22.0-30.0); Chloride 105 mmol/L (98-107); Estimated Glomerular Filt Rate 98 ml/min (>60); GFR (African American) 119 ML/MIN (>60); Glucose 88 mg/dl (74-100); Phosphorous 3.5 mg/dl (2.5-4.5); Sodium 138 mmol/L (136-145)
[2023-08-11 12:23] LABS: Miscellaneous Test SCANNED IMAGE
[2023-08-11 18:19] LABS: Osteocalcin 8.1 ng/mL (.); Tandem-R Ostase 11.1 ug/L (.)
[2023-08-12 21:08] LABS: C-Telopeptide Serum 92 pg/mL (.)
[2023-08-13 12:12] LABS: Serial Monitoring PDF SCANNED IMAGE
== END 2023-08-07 23:59 ==
LOC: LAB 10:35
PROVIDERS: PCP Nurse Practitioner Family; Visit Provider Internal Medicine Nephrology
DX: M81.0 Age-related osteoporosis without current pathological fracture (principal)
CPT/HCPCS: 36415; 80069; 82306; 82523; 83937; 84080

== ENCOUNTER 2023-08-21 12:20 | Outpatient (POV) | payer MEDICARE, SELFPAY | END 2023-08-21 23:59 | disposition home or self-care (01) | LOC: SC 12:20 | PROVIDERS: Visit Provider Nurse Practitioner | DX: Z00.00 Encounter for general adult medical examination without abnormal findings (principal) ==

== ENCOUNTER 2023-10-02 10:00 | Outpatient (RCR) | payer MEDICARE, SELFPAY ==
--- NOTE | 2023-08-28 11:51 | HMH.PTOPEV ---
PT Outpatient Evaluation Rehab PT Outpatient Evaluation Start: 08/28/23 11:35 Freq: Status: Active Protocol: Document 08/28/23 11:35 BISHOP (Rec: 08/28/23 11:50 BISHOP [id number]) E-signed By Jonn Cervantes, PT Outpatient Therapy Subjective History Subjective History Patient is a 73 year old female presenting to outpatient PT with reports of BLE thigh pain. 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 Symptoms of insidious onset starting approx 4 months ago. No recent imaging to report. Comorbidities include hx of L3/4/5 fusion, HTN and HL. New diagnosis of cancer in past 12 No months? Chief Complaint Pain,Spasms,Stiff,Gives out/ Unstable Symptom Type Throb Symptoms Relieved By Rest/Positioning,Heat, Prescription Meds Symptoms Aggravated By Standing,Physical Activity, Walking Prior Functional Limitations None Current Functional Limitations Housework,Standing,Squatting, Walking,Stairs,Balance Symptom Description Constant but Variable Level of pain today (0-10) 1 Pain scale - at its best (0-10) 1 Pain scale - at its worst (0-10) 6 Hip/Knee Eval Gait Observation General Gait Pattern Observation No Deviations/Normal Palpation Tenderness bilateral Knee Palpation Finding Tenderness Knee Palpation Overall Comment B distal ITB 3/4 MMT left Hip Flexion Strength Grade 4 Good Hip Abduction Strength Grade 4- Good- Hip Adduction Strength Grade 4- Good- Hip Extension Strength Grade 3+ Fair+ Hip External Rotation Strength Grade 4 Good Hip Internal Rotation Strength Grade 4 Good Knee Extension Strength Grade 4 Good Knee Flexion Strength Grade 4 Good ROM bilateral Hip Internal Rotation Active Range of 7 Motion (degrees) Hip ROM Limitations Soft Tissue Tightness Knee ROM Reason Not Measured Within Functional Limits Special Tests Hip Jeanne Test Positive Left,Positive Right Hip Piriformis Test Positive Left,Positive Right Hip 90-90 Straight Leg Raise Test Negative Left,Negative Right Lower Extremity Functional Index Activities Today, do you or would you have any difficulty at all with: a.Any of your usual work, housework or Moderate difficulty school activities b. Your usual hobbies, recreational or Moderate difficulty sporting activities c. Getting into or out of the bath No difficulty d. Walking between rooms No difficulty e. Putting on your shoes or socks A little bit of difficulty f. Squatting Moderate difficulty g. Lifting an object, like a bag of A little bit of difficulty groceries from the floor h. Performing light activities around A little bit of difficulty your home i. Performing heavy activities around Moderate difficulty your home j. Getting into or out of a car Moderate difficulty k. Walking 2 blocks A little bit of difficulty l. Walking a mile A little bit of difficulty m. Going up or down 10 stairs (about 1 Quite a bit of difficulty flight of stairs) n. Standing for 1 hour Moderate difficulty o. Sitting for 1 hour Moderate difficulty p. Running on even ground Moderate difficulty q. Running on uneven ground Quite a bit of difficulty r. Making sharp turns while running fast Quite a bit of difficulty s. Hopping Moderate difficulty t. 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 Goals Number of Weeks 4-6 Decreased Palpation Tenderness Yes: 1/4 Increase Range of Motion Yes: WNL B hip/knee Increase Strength Yes: 5/5 BLE Increase Ability to Walk Yes: 30 min without difficulty Increase Ability to Stand Yes: Improve Ability For Household Care Yes Improve LEFI Score Yes: >60 Decrease Edema 2/10 at worst Decrease Subjective C/O Pain Yes Outpatient Therapy Plan of Care Treatment Plan May Include Therapeutic Exercise Including Home Yes Exercise Program Manual Therapy Techniques Yes Neuromuscular Re-education Yes Therapeutic Activities to Return to Yes Previous Functional/Work Level Gait Training Yes ADL/Self Care Education Yes Dry Needling Yes Thermal Modalities Yes Electrical Stimulation Yes Ultrasound/Phonophoresis Yes Iontophoresis Yes Vasopneumatic Compression Pump Yes Massage Yes Eval/Re-Eval Yes Aquatic Therapy Yes Frequency Times per week 2 Duration Number of Weeks 4-6 Addendums This patient is a candidate for social No or vocational rehab? Patient/Guardian verbally acknowledges Yes understanding of treatment program and consents to further treatment? Patient/Guardian verbally acknowledges Yes understanding of diagnosis, prognosis and goals for treatment? Eval Complexity PT Charges 72148 - Moderate Complexity Shoulder/Elbow Eval Shoulder Objective Measurements Elbow Objective Measurements PHYSICIAN CERTIFICATION: I certify the specified therapy services for Breana Garnica are required, authorized, and reviewed every 30 days.
== END 2023-10-02 11:20 | disposition home or self-care (01) ==
LOC: PT 10:00
PROVIDERS: Visit Provider Nurse Practitioner Family
DX: M79.651 Pain in right thigh (principal)
CPT/HCPCS: 97010; 97014; 97110; 97140; 97163; 97530; G0283

== ENCOUNTER 2023-11-23 09:58 | Emergency (ER) | payer MEDICARE, SELFPAY ==
[2023-11-23 10:15] VITALS: BP 149/89; PULSE 85; RESP 21; TEMP 36.8; O2SAT 98; BMI 25.1
[2023-11-23 10:35] LABS: Apearance,Urine Clear (Clear); Blood, Urine 2+ (Negative); Color,Urine Orange (Yellow); Glucose,Urine (UA) 250 (Negative); Ketones,Urine 15 (Negative); Protein,Urine 2+ (Negative); Specific Gravity, Urine <= 1.005 (1.005-1.030)
--- NOTE | 2023-11-23 10:35 | EXP.UTC ---
Discharge Plan Disposition Patient Disposition: Home, Self-Care Condition: Good Prescriptions Prescriptions: New ciprofloxacin HCl [Cipro] 500 mg tablet 500 mg PO BID 7 Days Qty: 14 0RF phenazopyridine [Pyridium] 200 mg tablet 200 mg PO Q8H 2 Days Qty: 6 0RF No Action methocarbamol 500 mg tablet 500 mg PO DAILY Patient Comments: TAKE 1 TABLET BY MOUTH ONCE DAILY NEEDED FOR MUSCLE SPASM trazodone 50 mg tablet 50 mg PO HS Patient Comments: TAKE 1 TABLET BY MOUTH AT BEDTIME NIGHTLY pravastatin 40 mg tablet 40 mg PO HS Patient Comments: TAKE 1 TABLET BY MOUTH ONCE DAILY AT BEDTIME alendronate 70 mg tablet 70 mg PO WEEKLY Patient Comments: TAKE 1 TABLET BY MOUTH ONCE A WEEK omeprazole 40 mg capsule,delayed release(DR/EC) 40 mg PO DAILY Patient Comments: TAKE 1 CAPSULE BY MOUTH ONCE DAILY montelukast 10 mg tablet 10 mg PO DAILY ergocalciferol (vitamin D2) 1,250 mcg (50,000 unit) capsule 1,250 mcg PO DAILY Patient Comments: TAKE 1 CAPSULE BY MOUTH ONCE A WEEK FOR 8 WEEKS THEN DECREASE TO 1 CAPSULE ONCE A MONTH losartan 100 mg tablet 100 mg PO DAILY Patient Comments: TAKE 1 TABLET BY MOUTH ONCE DAILY Referrals Follow up/Referrals: Mony Zabala APRN [Primary Care Provider] - See instructions Activity Restrictions/Add. Instructions Additional Instructions/Restrictions: Take medication as prescribed If you start having pain in the back of your heels or your joint follow up with your Family doctor immediately *Increase fluids. Water not Soda or Tea *Start antibiotic immediately and be sure to take as ordered for the FULL length of time although you should start to see improvement over the next 48 hours *Pyridium as needed Remember this medication will turn your urine . This is normal but it will stain what ever it gets on *You should not use Pyridium for more than 48 hours. If so , follow up with your primary physician to review urine culture and ensure that antibiotic is adequate for infection *Be SURE to follow up anytime for new or worsening symptoms with your family doctor. AND in 48 hours for urine culture results with your family doctor, if you do not have a doctor then you may call back to the [facility] for urine culture results and further treatment. We do recommend that you choose and establish care with a Primary Care Physician. ?AND follow up with them ?in 10-14 days to repeat UA to ensure infection is resolved and blood no longer present *Be sure to let your PCP know that we sent urine cultures from the [facility] so they can follow up to ensure that you area the on the correct antibiotic Call your doctor office and make appointment for 48 hours (2 days from today) ?to follow up and get the results of your urine culture and further treatment Clinical Impressions Clinical Impression: UTI (urinary tract infection) Qualifiers: Urinary tract infection type: site unspecified Hematuria presence: with hematuria Qualified Code(s): N39.0 - Urinary tract infection, site not specified Instructions Patient Instructions: Urinary Tract Infection, DI for Urinary Tract Infection (UTI) Discharge ED [place]: Melanie Garay [facility] [place] General Stated complaint: pain and frequent urination, urinary pressure Mode of Arrival: Ambulatory Source of Information: Patient Limitations: No Limitations Time Seen by Provider: 11/23/23 10:38 Description of Symptoms (Recalled from Triage Doc. by RN): PATIENT C/O BLADDER PRESSURE AND FREQUENCY/BURNING WITH URINATION SINCE THURSDAY HEENT Symptoms (Recalled from RN notes): No Resp Symptoms (Recalled from RN notes): No Skin Symptoms (Recalled from RN notes): No MS Symptoms (Recalled from RN notes): No Functional Status (Recalled from RN notes): WNL History of Present Illness Provider Complaint: Patient states that she has been having pain and burning with urination and feeling of urgency and frequency States that she took an azo but still having symptoms so she came in to get checked to see if she may have a UTI Related Data Home Medications Medication Instructions Recorded Confirmed alendronate 70 mg tablet 70 mg PO WEEKLY 11/23/23 11/23/23 ergocalciferol (vitamin D2) 1,250 1,250 mcg PO DAILY 11/23/23 11/23/23 mcg (50,000 unit) capsule losartan 100 mg tablet 100 mg PO DAILY 11/23/23 11/23/23 methocarbamol 500 mg tablet 500 mg PO DAILY 11/23/23 11/23/23 montelukast 10 mg tablet 10 mg PO DAILY 11/23/23 11/23/23 omeprazole 40 mg capsule,delayed 40 mg PO DAILY 11/23/23 11/23/23 release pravastatin 40 mg tablet 40 mg PO HS 11/23/23 11/23/23 trazodone 50 mg tablet 50 mg PO HS 11/23/23 11/23/23 Previous Rx's Medication Instructions Recorded ciprofloxacin HCl 500 mg tablet 500 mg PO BID 7 days #14 tabs 11/23/23 (Cipro) phenazopyridine 200 mg tablet 200 mg PO Q8H pain 2 days #6 tabs 11/23/23 (Pyridium) Allergies Allergy/AdvReac Type Severity Reaction Status Date / Time lisinopril [LISINOPRIL] Allergy Intermediate Verified 08/13/23 10:59 Sulfa (Sulfonamide Allergy Verified 08/13/23 10:59 Antibiotics) amoxicillin [From AUGMENTIN] AdvReac Intermediate Diarrhea Verified 11/23/23 10:42 clavulanic acid AdvReac Intermediate Diarrhea Verified 11/23/23 10:42 [From AUGMENTIN] Worker's Comp Is this a Worker's Comp case?: No [facility] Disclaimer: The information contained in this section may have been updated after the patient was seen, as this information can be updated by other users. Medical History History of gastroesophageal reflux (GERD) Hyperlipidemia Hypertension Urinary tract infection Surgical History History of hysterectomy Social History Smoking Status: Never smoker second hand exposure: No alcohol intake: never substance use type: denies use current occupational status: other Travel in the last 8 weeks: None household members: none housing: house current occupational exposures/hazards: No caffeine: Yes ROS Obtained: Yes All systems reviewed & no additional complaints except as documented and Yes Systems reviewed as appropriate & no additional complaints except as documented Constitutional Constitutional: Reports system reviewed and no additional complaints, except as documented, Reports as per HPI, Denies body ache, Denies chills and Denies fever(s) ENT Ears, Nose, Mouth, and Throat: Reports system reviewed and no additional complaints, except as documented and Reports as per HPI Cardiovascular Cardiovascular: Reports system reviewed and no additional complaints, except as documented and Reports as per HPI Respiratory Respiratory: Reports system reviewed and no additional complaints, except as documented and Reports as per HPI Gastrointestinal Gastrointestingal: Reports system reviewed and no additional complaints, except as documented and as per HPI; Denies abdominal pain, nausea or vomiting Genitourinary Female Genitourinary: Reports system reviewed and no additional complaints, except as documented, Reports as per HPI, Reports dysuria, Reports flank pain, Reports urinary frequency and Reports urinary urgency Physical Exam General General appearance: alert and in no apparent distress ENT ENT exam: Present mucous membranes moist Respiratory Respiratory exam: Present normal lung sounds bilaterally; Absent respiratory distress or wheezes Cardiovascular Cardiovascular exam: Present regular rate, normal rhythm and normal heart sounds Abdominal Exam Abdominal exam: Present soft and normal bowel sounds; Absent distention or tenderness Neurological Exam Neurological exam: Present alert, oriented X3 and normal gait Medical Decision Making Mat Inquiry Pt receiving controlled substance: No Mat was queried for this patient: No Vital Signs: 11/23/23 10:15 Temperature 98.2 F Temperature Source Oral Pulse Rate [Left Brachial] 85 Respiratory Rate 21 Blood Pressure [Left Arm] 149/89 H Blood Pressure Mean [Left Arm] 109 Blood Pressure Source [Left Arm] Automatic Cuff Blood Pressure Position [Left Arm] Sitting 02 Sat by Pulse Oximetry 98 Oxygen Delivery Method Room Air Lab Data Lab results reviewed: Yes I reviewed the patient's lab results. Orders (Tests/Meds): ORDERS Category Date Time Status Urine Culture Stat Micro 11/23/23 10:11 Ordered Medical Decision Narrative: Medication discussed with pharmacy
[2023-11-23 10:36] LABS: Bilirubin,Urine 1+ (Negative); UTC Leukocyte Esterase,Urine 3+ (Negative); UTC Nitrate,Urine Positive (Negative); Urobilinogen,Urine 4 EU/dl (0.2)
[2023-11-23 10:51] VITALS: BP 149/89; PULSE 85; RESP 21; TEMP 36.8; O2SAT 98
== END 2023-11-23 10:54 | disposition home or self-care (01) ==
PROVIDERS: Emergency Provider Nurse Practitioner; PCP Nurse Practitioner Family
DX: N39.0 Urinary tract infection, site not specified (principal); B96.4 Proteus (mirabilis) (morganii) as the cause of diseases classified elsewhere; R31.9 Hematuria, unspecified; R30.0 Dysuria; R35.0 Frequency of micturition
CPT/HCPCS: 81003; 87086; 87088; 87186; 99212; 99214; G0463

== ENCOUNTER 2024-05-24 12:50 | Outpatient (CLI) | payer MEDICARE, SELFPAY ==
--- NOTE | 2024-05-24 12:54 | XR_ITS ---
FINAL REPORT CLINICAL HISTORY: UPPER BACK PAIN..no trauma FINDINGS: AP, lateral, and swimmer's views of the thoracic spine were obtained. There is no prior exam for comparison. There is no acute fracture or malalignment. Vertebral body height is preserved. There is multilevel degenerative disc disease. Paraspinal soft tissues are within normal limits. IMPRESSION: No acute abnormality of the thoracic spine. Reviewed, Interpreted and Dictated by Megan Barrera MD Transcribed by Beatriz Ybarra Authenticated and [facility]
== END 2024-05-24 23:59 | disposition home or self-care (01) ==
LOC: RAD 12:51
PROVIDERS: PCP Nurse Practitioner Family; Visit Provider Nurse Practitioner Family
DX: M54.9 Dorsalgia, unspecified (principal)
CPT/HCPCS: 72072

== ENCOUNTER 2024-08-10 09:14 | Outpatient (CLI) | payer MEDICARE, SELFPAY ==
--- NOTE | 2024-08-10 09:20 | XR_ITS ---
FINAL REPORT TECHNIQUE: Bone densitometry calculations of the lumbar spine and left hip were obtained. CLINICAL HISTORY: SCREENING COMPARISON: 06/10/2023 FINDINGS: Using the right forearm, the bone mineral density of the mid is 0.414 g/cm2, corresponding to T-score of -3.5. Using the left hip, the bone mineral density of the femoral neck is 0.742 g/cm2, corresponding to a T-score of -1.0. Using the right hip, the bone mineral density of the femoral neck is 0.693 g/cm?, corresponding to a T-score of -1.4. NOTE: T-score: Standard deviation compared with peak bone mass of young adult mean. *Following the recommendations of the International Society of Bone densitometry, classification of hip BMD is based on the lower of two T-scores; total hip or femoral neck. IMPRESSION: Diminished bone mineral density of the right hip consistent with osteopenia. Diminished bone mineral density of the right forearm consistent with osteoporosis. Normal bone mineral density of the left hip. Reviewed, Interpreted and Dictated by Megan Barrera MD Transcribed by Brianna Bello Authenticated and [facility]
== END 2024-08-10 23:59 | disposition home or self-care (01) ==
LOC: RAD 09:16
PROVIDERS: PCP Nurse Practitioner Family; Visit Provider Nurse Practitioner Family
DX: Z78.0 Asymptomatic menopausal state (principal)
CPT/HCPCS: 77080

== ENCOUNTER 2024-09-02 08:04 | Outpatient (CLI) | payer MEDICARE, SELFPAY ==
[2024-09-02 08:58] LABS: Albumin Level 4.1 g/dl (3.5-5.0); Anion Gap 6.9 mEq/L (5-15); Blood Urea Nitrogen 9 mg/dl (7-17); Calcium 9.6 mg/dl (8.4-10.2); Carbon Dioxide 30 mmol/L (22.0-30.0); Chloride 106 mmol/L (98-107); Estimated Glomerular Filt Rate 98 ml/min (>60); GFR (African American) 119 ML/MIN (>60); Glucose 92 mg/dl (74-100); Magnesium 2.1 mg/dl (1.6-2.3); Phosphorous 3.2 mg/dl (2.5-4.5); Potassium 3.9 mmoL/L (3.5-5.1); Sodium 139 mmol/L (136-145)
[2024-09-02 09:15] LABS: 25-OH Vitamin D, Total 35.3 ng/mL (30-100)
[2024-09-06 11:12] LABS: Tandem-R Ostase 13.3 ug/L (.)
[2024-09-06 16:11] LABS: Osteocalcin 12.7 ng/mL (5.0-29.5)
[2024-09-07 11:50] LABS: Serial Monitoring PDF SCANNED IMAGE
== END 2024-09-02 23:59 | disposition home or self-care (01) ==
LOC: LAB 08:05
PROVIDERS: PCP Nurse Practitioner Family; Visit Provider Nurse Practitioner
DX: M81.0 Age-related osteoporosis without current pathological fracture (principal)
CPT/HCPCS: 36415; 80069; 82306; 83735; 83937; 84080

== ENCOUNTER 2024-11-04 12:04 | Outpatient (CLI) | payer MEDICARE, SELFPAY ==
--- OUTSIDE RECORDS SUMMARY | 2024-11-04 12:06 | XMS_ITS | Data Portability ---
Author Organization [facility] & [facility], LPNT ADMIN Address [address] [place] [phone] Assessment Encounter Date Assessment Date Assessment LastModified by Organization Details LastModified Time 08/11/2023 08/11/2023 73-year-old female with: 1. Esophageal stricture: Dysphagia has resolved following dilation to 20 mm on recent EGD. Continue daily PPI. Will plan for repeat EGD as needed for recurrent symptoms. 2. History of colonoscopy: I records indicate she had colonoscopy by Dr. Dong 2013 with 5 year repeat suggested. She believes she had repeat at [facility] but is not sure. She plans to discuss with her PCP. I recommend repeat colonoscopy 5 years after her most recent exam due to reported history of colon polyps. Follow-up PRN [email or web address] Not available 08/11/2023 10:21:29 Plan of Treatment Reminders Order Date Submit Date Provider Last Modified By Organization Details Last Modified Time Details Appointments None record ed. Lab None record ed. Referral None record ed. Procedures None record ed. Surgeries None record ed. Imaging None record ed. Medication Orders None record ed. Patient TargetsNo targets recorded. Patient InstructionsNo instructions recorded. Reason for Referral None Reported. Problems Name Problem SNOMED Code Status Onset Date Resolution Date Notes Provider Name and Address Organization Details Recorded Time Peptic stricture of esophagus 403644500 Active 024 Ti Bello PA-C [address], [place], [phone] , [facility] & [place] 10:20:09 Problem Notes None recorded. Medical Equipment None Reported. Allergies Allergen ID Allergen Name Allergen Category Reaction Reaction Severity Criticality Documentation Date Start Date Code Code System Note Provider Name and Address Organization Details Recorded Time 210161 Substance with sulfonami de structure and antibacte rial mechanism of action (substanc e) medicatio n Not available Not available Not available 08/11/2023 41661 8003 SNOMED MABLE Kramer [facility] & [place] 4 09:51:28 [id number] lisinopri l medicatio n Not available Not available Not available 08/11/2023 06636 RxNorm MABLE Kramer [facility] & [place] 4 09:51:32 [id number] Augmentin medicatio n Not available Not available Not available 08/11/2023 12258 2 RxNorm MABLE Kramer [facility] & [place] 4 09:51:35 Medications Name Sig Start Date Stop Date Status Note LastModified by Organization Details LastModified Time methocarbamol 500 mg tablet TAKE 1 TABLET BY MOUTH ONCE DAILY NEEDED FOR MUSCLE SPASM active Not Available Not Available No t Available doxycycline hyclate 100 mg capsule TAKE 1 CAPSULE BY MOUTH TWICE DAILY FOR 10 DAYS active Not Available Not Available No t Available trazodone 50 mg tablet TAKE 1 TABLET BY MOUTH ONCE DAILY AT BEDTIME active Not Available Not Available No t Available azithromycin 250 mg tablet TAKE 2 TABLETS BY MOUTH ON DAY 1, AND THEN TAKE 1 TABLET BY MOUTH ONCE A DAY ON DAY 2 THROUGH DAY 5 active Not Available Not Available No t Available pravastatin 40 mg tablet TAKE 1 TABLET BY MOUTH ONCE DAILY AT BEDTIME active Not Available Not Available No t Available alendronate 70 mg tablet TAKE 1 TABLET BY MOUTH ONCE A WEEK active Not Available Not Available No t Available omeprazole 40 mg capsule,delay ed release TAKE 1 CAPSULE BY MOUTH ONCE DAILY active Not Available Not Available No t Available doxycycline monohydrate 100 mg tablet TAKE 1 TABLET BY MOUTH TWICE DAILY FOR 10 DAYS active Not Available Not Available No t Available neomycin-poly myxin-dexamet h 3.5 mg/mL-10,000 unit/mL-0.1% eye drops INSTILL 1 DROP INTO EACH EYE EVERY 2 TO 3 HOURS FOR 3 DAYS. THEN TAPER TO FOUR TIMES DAILY FOR 7 DAYS active Not Available Not Available No t Available triamcinolone acetonide 0.1 % topical ointment APPLY A SMALL AMOUNT OF OINTMENT TOPICALLY TO AFFECTED LIDS TWICE DAILY FOR 14 DAYS active Not Available Not Available No t Available montelukast 10 mg tablet TAKE 1 TABLET BY MOUTH ONCE DAILY active Not Available Not Available No t Available estradiol 0.01% (0.1 mg/gram) vaginal cream USE 1 GRAM PER VAGINA ON THURSDAY, THURSDAY, AND THURSDAY active Not Available Not Available N ot Available methylprednis olone 4 mg tablets in a dose pack TAKE BY MOUTH DIRECTED ON INSIDE OF PACKAGE active Not Available Not Available N ot Available hydrocortison e 2.5 % topical ointment APPLY TO EYELIDS TWICE DAILY FOR 2 WEEKS, CALL IF NEEDED LONGER THAN 2 WEEKS active Not Available Not Available No t Available losartan 100 mg tablet TAKE 1 TABLET BY MOUTH ONCE DAILY active Not Available Not Available No t Available fluticasone propionate 50 mcg/actuation nasal spray,suspens ion active Not Available Not Available Not Available Vitals Date Recorded Body weight Body mass index (BMI) Body height Body temperature Oxygen saturation Oxygen saturation in Arterial blood by Pulse oximetry Heart rate Heart rate Systolic blood pressure Diastolic blood pressure Provider Name and Address Organization Details Last Updated DateTime 4 03374.6 5 g 25.6 kg/m2 157.48 cm 98.1 [degF] 98 % 98 % 75 /min 74 /min 148 mm[Hg] 80 mm[Hg] [facility] & [place] 4 09:52:09 Social History None recorded. Functional Status None recorded. Mental Status None recorded. Family History Nothing Reported. Medical History No medical history recorded. Gynecological HistoryNo gynecological history recorded. Obstetrics History GPAL:G 0 P 0 0 0 0 Past Encounters Encounter ID Performer Location Encounter Start Date Encounter Closed Date Diagnosis/Indication Diagnosis SNOMED-CT Code Diagnosis ICD10 Code Diagnosis Note [id number] Ti Bello PA-C [facility] [address] [phone] 08/11/2023 09:33:23 08/11/2023 10:11:41 Peptic stricture of esophagus 943535143 K22.2 History of colonoscopy 9696581228 09 Z98.890 Health Concerns Section Related Observation LastModified by Organization Detai ls LastModified Time None Recorded Concern Status LastModified by Organization Details LastModified Time None Recorded Advance Directives Directive None Recorded Payers Insurance Date Sequence Insurance Name Policy Number Policy Abdul Covered Member ID Abdul Member ID Guarantor Name 08/08/2023 1 [employer] (MEDICARE REPLACEMENT/ ADVANTAGE - PPO) Breana Garnica [id number] Breana Garnica Notes Date Note Type Note Provider Name and Address Organization Details Recorded Time 08/11/2023 text/html Ms. Garnica is a very pleasant 73-year-old female who presents to the office today for procedure follow-up. She underwent EGD recently in evaluation of dysphagia. She was found to have a 16 mm peptic stricture. Dilation was performed up to 20 mm. Her dysphagia has resolved. GE junction biopsy taken during the procedure showed chronic inflammation without intestinal metaplasia. She recently changed the timing of her omeprazole to 30 minutes before morning meal and this has resolved her heartburn issues. She denies any additional complaints at this time. Ti Bello PA-C [address], [place], [phone], [facility] [place] & [place] 08/11/2023 10:22:09 OBGyn Episode No OBEpisode recorded.
--- OUTSIDE RECORDS SUMMARY | 2024-11-04 12:06 | XMS_ITS | Data Portability ---
Author Organization [facility] ROSANA Parra [place] [facility] Address [address] [address] [place] [address] Assessment No assessment recorded. Plan of Treatment Reminders Order Date Submit Date Provider Last Modified By Organization Details Last Modified Time Details Appointments None recorded. Lab urinalysis panel, auto [email or web address] [facility], [address], [place], [address], 1 10:17:26 urinalysis panel, auto 2019 020 [email or web address] [facility], [address], [address], [place], [address], 0 21:40:04 Referral None recorded. Procedures None recorded. Surgeries None recorded. Imaging CT, abdomen + pelvis, w/o contrast 2020 021 [email or web address] [facility], [address] [facility], [place], [address], 1 17:48:04 Medication Orders None recorded. Patient TargetsNo targets recorded. Patient InstructionsNo instructions recorded. Reason for Referral None Reported. Results Created Date Observation Date Name Description Value Unit Range Abnormal Flag Note LastModifiedBy Organization Detail LastModifiedTime 04/12/20 21 04/12/2021 urina lysis panel , auto Unknown Analyte Clean Catch Not Available [facility] [address], [place], [address], 04/12/2021 14:23:07 04/12/20 21 04/12/2021 urina lysis panel , auto Unknown Analyte Yellow Not Available [facility] [address], [place], [address], 04/12/2021 14:23:07 04/12/2004/12/2021 urina lysis panel , auto Unknown Analyte Clear Not Available [facility] [address], [place], [address], 04/12/2021 14:23:07 04/12/2004/12/2021 urina lysis panel , auto Unknown Analyte 1.005 Not Available [facility] [address], [place], [address], 04/12/2021 14:23:07 04/12/2004/12/2021 urina lysis panel , auto Unknown Analyte 1.003- 1.035 Not Available [facility] [address], [place], [address], 04/12/2021 14:23:07 04/12/2004/12/2021 urina lysis panel , auto Unknown Analyte 7.0 Not Available [facility] [address], [place], [address], 04/12/2021 14:23:07 04/12/20 21 04/12/2021 urina lysis panel , auto Unknown Analyte 5.0-8. 0 Not Available [facility] [address], [place], [address], 04/12/2021 14:23:07 04/12/2004/12/2021 urina lysis panel , auto Unknown Analyte 75 Maritza/ul (+) Not Available [facility] [address], [place], [address], 04/12/2021 14:23:07 04/12/2004/12/2021 urina lysis panel , auto Unknown Analyte Negati ve Not Available [facility] [address], [place], [address], 04/12/2021 14:23:07 04/12/2004/12/2021 urina lysis panel , auto Unknown Analyte Negati ve Not Available [facility] [address], [place], [address], 04/12/2021 14:23:07 04/12/2004/12/2021 urina lysis panel , auto Unknown Analyte Negati ve Not Available [facility] [address], [place], [address], 04/12/2021 14:23:07 04/12/2004/12/2021 urina lysis panel , auto Unknown Analyte Negati ve Not Available [facility] [address], [place], [address], 04/12/2021 14:23:07 04/12/2004/12/2021 urina lysis panel , auto Unknown Analyte Negati ve Not Available [facility] [address], [place], [address], 04/12/2021 14:23:07 04/12/20 21 04/12/2021 urina lysis panel , auto Unknown Analyte Normal Not Available [facility] [address], [place], [address], 04/12/2021 14:23:07 04/12/20 21 04/12/2021 urina lysis panel , auto Unknown Analyte Normal Not Available [facility] [address], [place], [address], 04/12/2021 14:23:07 04/12/20 21 04/12/2021 urina lysis panel , auto Unknown Analyte Negati ve Not Available [facility] [address], [place], [address], 04/12/2021 14:23:07 04/12/20 21 04/12/2021 urina lysis panel , auto Unknown Analyte Negati ve Not Available [facility] [address], [place], [address], 04/12/2021 14:23:07 04/12/20 21 04/12/2021 urina lysis panel , auto Unknown Analyte Normal Not Available [facility] [address], [place], [address], 04/12/2021 14:23:07 04/12/20 21 04/12/2021 urina lysis panel , auto Unknown Analyte Normal 1 mg/dl Not Available [facility] [address], [place], [address], 04/12/2021 14:23:07 04/12/2004/12/2021 urina lysis panel , auto Unknown Analyte Negati ve Not Available [facility] [address], [place], [address], 04/12/2021 14:23:07 04/12/2004/12/2021 urina lysis panel , auto Unknown Analyte Negati ve Not Available [facility] [address], [place], [address], 04/12/2021 14:23:07 04/12/2004/12/2021 urina lysis panel , auto Unknown Analyte Negati ve Not Available [facility] [address], [place], [address], 04/12/2021 14:23:07 04/12/2004/12/2021 urina lysis panel , auto Unknown Analyte Negati ve Not Available [facility] [address], [place], [address], 04/12/2021 14:23:07 05/14/2005/14/2020 urina lysis panel , auto Unknown Analyte Clean Catch Not Available [facility] [address], [place], [address], 05/14/2020 10:52:46 05/14/2005/14/2020 urina lysis panel , auto Unknown Analyte Yellow Not Available [facility] [address], [place], [address], 05/14/2020 10:52:46 05/14/20 20 05/14/2020 urina lysis panel , auto Unknown Analyte Clear Not Available [facility] [address], [place], [address], 05/14/2020 10:52:46 05/14/20 20 05/14/2020 urina lysis panel , auto Unknown Analyte 1.000 Not Available [facility] [address], [place], [address], 05/14/2020 10:52:46 05/14/2005/14/2020 urina lysis panel , auto Unknown Analyte 1.003- 1.035 Not Available [facility] [address], [place], [address], 05/14/2020 10:52:46 05/14/20 20 05/14/2020 urina lysis panel , auto Unknown Analyte 7.0 Not Available [facility] [address], [place], [address], 05/14/2020 10:52:46 05/14/20 20 05/14/2020 urina lysis panel , auto Unknown Analyte 5.0-8. 0 Not Available [facility] [address], [place], [address], 05/14/2020 10:52:46 05/14/2005/14/2020 urina lysis panel , auto Unknown Analyte Negati ve Not Available [facility] [address], [place], [address], 05/14/2020 10:52:46 05/14/2005/14/2020 urina lysis panel , auto Unknown Analyte Negati ve Not Available [facility] [address], [place], [address], 05/14/2020 10:52:46 05/14/2005/14/2020 urina lysis panel , auto Unknown Analyte Negati ve Not Available [facility] [address], [place], [address], 05/14/2020 10:52:46 05/14/2005/14/2020 urina lysis panel , auto Unknown Analyte Negati ve Not Available [facility] [address], [place], [address], 05/14/2020 10:52:46 05/14/2005/14/2020 urina lysis panel , auto Unknown Analyte Negati ve Not Available [facility] [address], [place], [address], 05/14/2020 10:52:46 05/14/2005/14/2020 urina lysis panel , auto Unknown Analyte Negati ve Not Available [facility] [address], [place], [address], 05/14/2020 10:52:46 05/14/2005/14/2020 urina lysis panel , auto Unknown Analyte Normal Not Available [facility] [address], [place], [address], 05/14/2020 10:52:46 05/14/2005/14/2020 urina lysis panel , auto Unknown Analyte Normal Not Available [facility] [address], [place], [address], 05/14/2020 10:52:46 05/14/20 20 05/14/2020 urina lysis panel , auto Unknown Analyte Negati ve Not Available [facility] [address], [place], [address], 05/14/2020 10:52:46 05/14/2005/14/2020 urina lysis panel , auto Unknown Analyte Negati ve Not Available [facility] [address], [place], [address], 05/14/2020 10:52:46 05/14/2005/14/2020 urina lysis panel , auto Unknown Analyte Normal Not Available [facility] [address], [place], [address], 05/14/2020 10:52:46 05/14/2005/14/2020 urina lysis panel , auto Unknown Analyte Normal 1 mg/dl Not Available [facility] [address], [place], [address], 05/14/2020 10:52:46 05/14/2005/14/2020 urina lysis panel , auto Unknown Analyte Negati ve Not Available [facility] [address], [place], [address], 05/14/2020 10:52:46 05/14/20 20 05/14/2020 urina lysis panel , auto Unknown Analyte Negati ve Not Available [facility] [address], [place], [address], 05/14/2020 10:52:46 05/14/2005/14/2020 urina lysis panel , auto Unknown Analyte 50 Risa/ul Not Available [facility] [address] [facility] [address], [place], [address], 05/14/2020 10:52:46 05/14/20 20 05/14/2020 urina lysis panel , auto Unknown Analyte Negati ve Not Available [facility] [address] [facility] [address], [place], [address], 05/14/2020 10:52:46 04/12/2004/06/2021 XR, abdom en, 1 view No observ ation record ed. [address], [place], [address], 04/26/2021 13:56:48 04/12/2004/12/2021 CT, abdom en + pelvi s, w/o contr ast [facility] [address] [place] [address] Patien t Name: BREANA YANGSTACIJUDY ER Patien t : 951 Patien t 2 Orderi ng Provid er: JUSTIN LINK EXAM DATE: 2020 EXAM: CT R/O KIDNEY STONES (A/P W/O) CLINIC AL INFORM ATION: Flank pain TECHNI QUE: Multip le axial CT images of the abdome n and pelvis were obtain ed withou t inject ion of IV contra st using the urinar y stone protoc ol. COMPAR DANAE: None. FINDIN GS ON CT ABDOME N: LOWER THORAX : Lung bases are clear. No obviou s cardia c abnorm ality URINAR Y TRACT: Both kidney s are normal in locati on, size, shape, outlin e and parenc hymal thickn ess. No stones or calcif icatio ns are seen within the kidney s ureter s or urinar y bladde r. No hydron ephros is, hydrou reter or perine phric strand ing is presen t. OTHER UPPER ABDOMI NAL ORGANS : Liver, gallbl adder, spleen , pancre as, and adrena ls are normal within the limits on interp retati on impose d by the absenc e of IV contra st. BOWEL AND MESENT RISA: Stomac h, small bowel and colon are normal . No mesent margo lympha denopa thy or perito jonah free fluid. RETROP ERITON EUM: Limite d evalua tion due to absenc e of IV contra st. Aorta, IVC and their branch es are normal in calibe r. No retrop eriton eal lympha denopa thy. ABDOMI NAL WALL AND SKELET AL STRUCT URES: Normal . FINDIN GS ON CT PELVIS : PELVIC CAVITY : Urinar y bladde r and rectos igmoid are normal . The uterus is not visual ized. No pelvic or inguin al lympha denopa thy, mass or fluid. MUSCUL OSKELE SCARLETT STRUCT URES: Normal . COMBIN ED IMPRES FANTA: No CT eviden ce of urinar y tract stone. Interp reted By: Mati Regan MD Electr onical ly Signed By: Mati Regan MD on 2020 3:51 PM [email or web address] [facility] [address] [place], [address], 04/16/2021 15:11:16 Result Notes None recorded. Problems Name Problem SNOMED Code Status Onset Date Resolution Date Notes Provider Name and Address Organization Details Recorded Time Microscop ic hematuria 415475767 Active 2014 From Automated Load;Provi paulina: Bola, Kerwin;St atus: Active Not Available [facility] 6 08:49:10 Problem Notes None recorded. Procedures Surgical History Date Name Laterality Status Provider Name and Address Organization Details Recorded Time Hysterectomy completed [facility] 05/14/2020 10:49:51 back fusion completed [facility] 05/14/2020 10:49:58 Imaging Results Imaging Date Name Status LastModified by Organiz ation Details LastModified Time 04/06/2021 XR, abdomen, 1 view completed [email or web address] [facility] [address], [place], [address], 04/26/2021 13:56:48 04/12/2021 CT, abdomen + pelvis, w/o contrast completed [email or web address] [facility] [address] [place], [address], 04/16/2021 15:11:16 Procedure Notes None recorded. Medical Equipment None Reported. Allergies Allergen ID Allergen Name Allergen Category Reaction Reaction Severity Criticality Documentation Date Start Date Code Code System Note Provider Name and Address Organization Details Recorded Time 724734 Substance with sulfonami de structure and antibacte rial mechanism of action (substanc e) medicatio n hives Not available Not available 05/23/20162014 65048 8003 SNOMED React ion: HIVES ; Comme nt: Creat ed By: Alvaro Live cia;C reate d Date: 2014 1:55: 33 PM; Not Available [facility] 6 04:17:30 [id number] lisinopri l medicatio n Not available Not available Not available 05/23/20162014 38966 RxNorm Comme nt: Creat ed By: Alvaro Live cia;C reate d Date: 2014 1:55: 49 PM; Not Available [facility] 6 05:05:18 [id number] Augmentin medicatio n Not available Not available Not available 05/14/2020 99095 2 RxNorm Muriel gordillo [facility] 0 10:44:14 Medications Name Sig Start Date Stop Date Status Note LastModified by Organization Details LastModified Time cyclobenzap rine 10 mg tablet active Medication Descriptio n: cyclobenza nicholas; refills:0 Not Available Not Available Not Available pravastatin 40 mg tablet active Medication Descriptio n: pravastati n; Route:oral ; refills:0 Not Available Not Available Not Available Fosamax 70 mg tablet Take 1 tablet every week by oral route. active Not Available Not Available No t Available omeprazole 20 mg capsule,del ayed release active Medication Descriptio n: omeprazole ; Route:oral ; refills:0 Not Available Not Available Not Available losartan 100 mg tablet active Medication Descriptio n: losartan; Route:oral ; refills:0 Not Available Not Available Not Available fluticasone propionate 50 mcg/actuati on nasal spray,suspe nsion As needed active Frequency: prn;Medica tion Descriptio n: fluticason e nasal; Route:nasa l; refills:0 Not Available Not Available Not Available melatonin active Not Available Not Hansa ilable Not Available Singulair Daily active Frequency: daily;Medi cation Descriptio n: montelukas t; Dosage:1; Route:oral ; refills:0 Not Available Not Available Not Available Vitamin D3 active Medicatio n Descriptio n: cholecalci ferol; Route:oral ; refills:0 Not Available Not Available Not Available ProAir HFA 90 mcg/actuati on aerosol inhaler As needed active Frequency: prn;Medica tion Descriptio n: albuterol; Route:inha lation; refills:0 Not Available Not Available Not Available levocetiriz ine 2.5 mg/5 mL oral solution active Medication Descriptio n: levocetiri zine; Route:oral ; refills:0 Not Available Not Available Not Available Vitamin B12 active Medicati on Descriptio n: cyanocobal merchant; refills:0 Not Available Not Available Not Available Vitals Date Recorded Body height Body mass index (BMI) Body weight Provider Name and Address Organization Details Last Updated DateTime 05/14/2020 154.94 cm 28.3 kg/m2 04632.86 g Muriel Mosqueda [facility] 05/14/2020 10:43:56 Date Recorded Body height Body mass index (BMI) Body weight Provider Name and Address Organization Details Last Updated DateTime 04/12/2021 154.94 cm 28.3 kg/m2 48243.86 g Clari Santos [facility] 04/12/2021 14:22:37 Social History Question Answer Notes LastModified by Organizat ion Details LastModified Time Tobacco Smoking Status Never Smoker [facility] 05/14/2020 10:49:18 What Is Your Level Of Alcohol Consumption? None [email or web address] Information not available 05/14/2020 How Much Tobacco Do You Chew? None [email or web address] Information not available 05/14/2020 Marital Status [email or web address] Informatio n not available 05/14/2020 How Much Tobacco Do You Smoke? No [email or web address] Information not available 05/14/2020 Sex: Unknown Functional Status None recorded. Mental Status None recorded. Family History Relationship Description Onset Age of this Age Resolved Age Notes LastModified by Organization Details LastModified Time Brother Malignant neoplasm of prostate [email or web address] Not available 05/14 10:48:58 Brother Diabetes mellitus Not available 05/14 10:49:13 Brother Malignant melanoma [email or web address] Not available 2023 13:12:12 Sister Diabetes mellitus [email or web address] Not available 05/14 10:49:13 Medical History Condition Response Varicose Veins N Autoimmune disease N Squamous Cell Carcinoma N Acid Reflux (GERD) Y Eczema N Melanoma N Acne N Skin Problems N Basal Cell Carcinoma N Sleep Apnea Y High Cholesterol Y Skin Cancer N Other Skin Condition N Hypertension Y Gynecological HistoryNo gynecological history recorded. Obstetrics History GPAL:G 0 P 0 0 0 0 Past Encounters Encounter ID Performer Location Encounter Start Date Encounter Closed Date Diagnosis/Indication Diagnosis SNOMED-CT Code Diagnosis ICD10 Code Diagnosis Note [id number] [facility] [address] 09/29/2016 23:07:10 09/29/2016 23:07:10 [id number] MD ARLENE L[facility]SON [facility] [address] [place] [address] 05/14/2020 10:36:07 05/14/2020 11:18:22 Benign essential microscopic hematuria 2587642620 84861 R31.1 follow-up with me on an as-needed basis. [id number] MD ARLENE LARSON [facility] [address] [place] [address] 04/12/2021 13:47:29 04/12/2021 15:03:46 Kidney stone 72097574 N20.0 Urolithiasis 36600925 N2 0.9 she'll continue with hydration. She will strain her urine. Her pain persists we will arrange for the above. She will follow-up in 3 weeks [id number] LILY Stuart, [address] [address] [place] [address] 04/26/2024 12:28:53 04/26/2024 14:06:17 Multiple benign melanocytic nevi 017224136 D22.5 - Benign moles seen on exam today - SPF 30 or higher broad-spec trum sunscreen recommende d with re-applica tion every 2 hours - Discussed sun protection measures, including wide-brimm ed hat, sun-protec tive clothing, and avoidance of sun during peak hours of 10am-4pm - Avoid tanning beds as these can increase the chances of all 3 types of skin cancer - Instructed to monitor for changes and to call us for appointmen t with any changing or worrisome lesions Seborrheic keratosis 394 346889 L82.1 - Benign overgrowth s of skin - Hereditary Senile angioma 6101689 I 78.1 - Benign blood vessel growths - Hereditary Solar lentigo 82003954 L 81.4 - Benign brown spots - Sun-induce d Family his tory of malignant melanoma 593782044 Z80.8 Make sure to keep all age appropriat e cancer screenings . Patient with a 1st degree relative who have a hx of MM are at higher risk of getting MM themselves Brother Health Concerns Section Related Observation LastModified by Organization Detai ls LastModified Time None Recorded Concern Status LastModified by Organization Details LastModified Time None Recorded Advance Directives Directive None Recorded Payers Insurance Date Sequence Insurance Name Policy Number Policy Abdul Covered Member ID Abdul Member ID Guarantor Name 04/23/2024 1 [employer] (MEDICARE REPLACEMENT/ ADVANTAGE - PPO) Breana Garnica [id number] Breana Garnica Notes Date Note Type Note Provider Name and Address Organization Details Recorded Time 05/14/2020 text/html patient is here typically followed for persistent microscopic hematuria at [facility]. She has no voiding complaints at this time. She typically has nocturia ? 1 . His had no urinary infections since her last visit a year and half ago. She is in a full evaluation including cystoscopy. Her urine today does have trace microscopic hematuria. Her last visit actually in [place] did not have microscopic blood. She sees her PCP twice per year and I suggested they follow her urine. If her microscopic hematuria remains stable and without additional symptoms would recommend seeing me on an as-needed basis. KERWIN LINK MD [address] [place] [address], [phone], [facility] 05/14/2020 21:41:51 04/12/2021 text/html patient is here with previous history of urolithiasis last seen by me last in April. She also has a history of persistent microscopic hematuria. She had a recent CT scan for right-sided flank pain. This revealed 2 mm calcification to the right of the L4 transverse process no stones were noted in her kidneys. Due to the size of the stone we discussed observation we discussed that the next afternoon would be cystoscopy with retrograde pyelogram and possible ureteroscopy. KERWIN LINK MD [address] [place] [address], [phone], [facility] 04/22/2021 10:17:48 04/26/2024 text/html Here for a full body skin examination - last skin check: {{ 02/2023#}}- no history of skin cancer- spots of concern today: {{ Nose, R flank#}} LILY WOODARD, JARED [address] [place] [address], [phone], [facility] 04/26/2024 14:53:20 OBGyn Episode No OBEpisode recorded.
== END 2024-11-04 23:59 | disposition home or self-care (01) ==
LOC: LAB.DROPOF 12:05
PROVIDERS: PCP Nurse Practitioner Family; Visit Provider Nurse Practitioner Family
DX: R10.9 Unspecified abdominal pain (principal); N39.0 Urinary tract infection, site not specified; B96.4 Proteus (mirabilis) (morganii) as the cause of diseases classified elsewhere
CPT/HCPCS: 87086; 87088; 87186

== ENCOUNTER 2025-01-30 15:29 | Outpatient (CLI) | payer MEDICARE, SELFPAY ==
--- NOTE | 2025-01-30 15:34 | XR_ITS ---
FINAL REPORT CLINICAL HISTORY: . FINDINGS: LUMBAR SPINE Five views were obtained. There is no acute fracture. There is posterior fusion hardware bridging L3-4 and L4-5. Moderate anterior osteophyte formation is seen at L2-3 and L3-4. There is lumbar scoliosis convex to the right measuring 10 degrees. There is no malalignment. IMPRESSION: Van postsurgical changes as above. Reviewed, Interpreted and Dictated by Serg Pandey MD Transcribed by Mago Srivastava Authenticated and [facility]
--- NOTE | 2025-01-30 15:34 | XR_ITS ---
FINAL REPORT CLINICAL HISTORY: ACUTE RIGHT SIDED LOW BACK PAIN WITHOUT SCIATICA FINDINGS: SACRUM/COCCYX Three views were obtained. There is no fracture or dislocation. The joint spaces appear normal. No soft tissue abnormality is identified. IMPRESSION: No acute process. Reviewed, Interpreted and Dictated by Serg Pandey MD Transcribed by Mago Srivastava Authenticated and [facility]
--- OUTSIDE RECORDS SUMMARY | 2025-01-30 15:34 | XMS_ITS | Clinical Summary ---
Author Organization [facility] Address [address] [place] [address] Care Team Providers Care Postal Transportation Clerk Name Role Phone Mony Zabala MOTION PICTURE SET WORKER Primary Care Provider [phone] Misa Ceja MOTION PICTURE SET WORKER Unavailable [phone] Allergies Active Allergy Reactions Criticality Noted Date Comments Amoxicillin Unknown - Patient states they do not know rxn details Medium 12/15/2021 Amoxicillin-Pot Clavulanate Other - plea se document in the comment field Low 02/07/2020 diahrrea Clavulanic Acid Unknown - Patient states they do not know rxn details Medium 12/15/2021 Lisinopril Other - please docum ent in the comment field,Unknown - Patient states they do not know rxn details Low 03/19/2015 cough Sulfa Drugs Unknown - Patient states they do not know rxn details Low 12/15/2021 Sulfacetamide Itching,Hives,Unknow n - Patient states they do not know rxn details Medium 05/27/2010 Medications albuterol 108 (90 Base) MCG/ACT inhaler 1 Active alendronate (Fosamax) 70 MG tablet Fosamax 70 mg tablet Take 1 tablet every week by oral route. Active fluticasone (Flonase) 50 MCG/ACT nasal spray fluticasone propionate 50 mcg/actuation nasal spray,suspensio n As needed Active losartan (Cozaar) 100 MG tablet Take 1 tablet (100 mg) by mouth 1 (one) time each day. 2 Active methocarbamol (Robaxin) 500 MG tablet TAKE 1 TABLET BY MOUTH ONCE DAILY NEEDED FOR MUSCLE SPASM 2 Active montelukast (Singulair) 10 MG tablet Take 1 tablet (10 mg) by mouth 1 (one) time each day. 2 Active omeprazole (PriLOSEC) [address] capsule Take 1 capsule (40 mg) by mouth 1 (one) time each day. 2 Active pravastatin (Pravachol) 40 MG tablet pravastatin 40 mg tablet 0 Active traZODone (Desyrel) 50 MG tablet Take 1 tablet (50 mg) by mouth every night. 2 Active zinc gluconate 50 MG tablet Take 1 tablet (50 mg) by mouth 1 (one) time each day. Active diclofenac (Voltaren) 1 % topical gel APPLY 2 GRAMS TOPICALLY 4 TIMES DAILY 2 Active Cranberry 1000 MG capsule Take by mouth. Acti ve pyridoxine 100 MG tablet Take 100 mg by mouth 1 (one) time each day. Active estradiol (Estrace) 0.1 MG/GM vaginal cream USE 1 GRAM PER VAGINA ON THURSDAY, THURSDAY, AND Thursday 4 Active nitrofurantoin, macrocrystal-mon ohydrate, (Macrobid) 100 MG capsule TAKE 1 CAPSULE BY MOUTH TWICE DAILY FOR 5 DAYS 4 Active sodium chloride 5 % ophthalmic ointment Apply 1 Application to both eyes every night. Active ergocalciferol 1.25 MG (48961 UT) capsuleIndicatio ns:Age-related osteoporosis without current pathological fracture,Vitamin D deficiency Take 1 capsule (50,000 Units) by mouth every 30 (thirty) days. 1 capsule 11 4 02/09/20 25 Active Multiple Vitamins-Mineral s (OCUVITE ADULT 50+ PO) Take 1 tablet by mouth in the evening. Active Active Problems Problem Noted Date Diagnosed Date Osteoporosis 09/09/2024 Immunizations Immunization Administration Dates Next Due Hep A, Adult 03/09/2019,05/12/2018 Hep B, Adolescent or Pediatric 09/02/1995 Hep B, Unspecified 09/02/1995 Influenza, High-dose, Split Virus, Trivalent, Injectable, preservative free 03/13/2024,04/16/2020,03/09/2019,05/12,05/04/2017 Influenza, high-dose, quadrivalent 03/12,04/14/2022,03/21/2021,04/16,03/09/2019,05/12/2018,05/04/2017 Influenza, injectable, quadrivalent 05/05/2017 Moderna COVID-19 Vaccine (Re d Cap) 12+ years 12/11/2021,04/24/2021,08/17/2020,07/18 Pneumococcal Conjugate PCV 13 07/08/2017, 017 Pneumococcal Polysaccharide PPV23 07/12/2018 Rsvpref, Recombinant, Protei n Subunit, Adjuvent 03/12/2023 TD (adult), 2 Lf tetanus tox oid, preservative free, adsorbed 08/31/1996 Tdap 10/22/2017 Zoster, Recombinant 09/12/2020,05/02/2020 Zoster, live 01/15/2017 Family History Medical History Relation Name Comments Diabetes Father Other cancer Father Stroke Father Diabetes Mother Other cancer Mother Stroke Mother Stroke Other 1 Diabetes Other 2 Other cancer Other 3 Relation Name Status Comments Father Mother Other 1 Other 2 Other 3 Social History Tobacco Use Types Packs/Day Years Used Date Smoking Tobacco: Never Smokeless Tobacco: Never Tobacco Cessation:Counseling Given: Not Answered Alcohol Use Standard Drinks/Week Comments Never 0 (1 standard drink = 0.6 oz pur e alcohol) Comments No Sex and Gender Information Value Date Recorded Sex Assigned at Not on file Legal Sex Female 7:28 PM EDT Gender Identity Not on file Sexual Orientation Not on file Last Filed Vital Signs Vital Sign Reading Time Taken Comments Blood Pressure 166/74 09/09/2024 11:38 AM EDT 188/99 the first time it was taken Pulse 70 09/09/2024 11:38 AM EDT Temperature - - Respiratory Rate 16 09/09/2024 11:3 8 AM EDT Oxygen Saturation 98% 09/09/2024 11: 38 AM EDT Inhaled Oxygen Concentration - - Weight 64.4 kg (142 lb) 09/09/2024 11:3 8 AM EDT Height 154.9 cm (5' 1 ) 09/09/2024 11:3 8 AM EDT Body Mass Index 26.83 09/09/2024 11:38 AM EDT Plan of Treatment Upcoming Encounters Date Type Department Care Team (Late st Contact Info) Description 06/28/2025 3:30 PM EST Ovarian Cancer Screening [facility] [address] [place] [address] 09/22/2025 10:40 AM EDT Office Visit [facility] [address] [place] [address] Cecilia Bean, MOTION PICTURE SET WORKER [address] [facility] [address] [place] [address] Health Maintenance Due Date Last Done Comments [facility]-Bone Density Scan 1950 [facility]-Depression Screening 1950 [facility]-Hepatitis C Screening 1950 [facility]-Medicare Annual Wellness (AWV) 1950 [facility]-/Child/Adol SDOH Screenings 1950 [facility]- SDOH Screenings 1969 [facility]-Adult SDOH Screenings 1969 CT Colonography 02/09/1996 Colonoscopy 02/09/1996 FIT-DNA 02/09/1996 FIT 02/09/1996 FOBT 02/09/1996 Sigmoidoscopy 02/09/1996 [facility]-Colorectal Cancer Screening 02/09/1996 [facility]-Breast Cancer Screening 2001 [id number] Vaccine ( season) 2024 03/13/2024, 03/27/2023, 07/09/2022, Additional history exists [facility]-Influenza Vaccine (#1) 02/27/202503/13, 03/12/2023, 04/14/2022, Additional history exists [facility]-DTaP,Tdap,and Td Vaccines (2 - Td or Tdap) 10/23/2027 10/22/2017, 08/31/1996 [facility]-Pneumococcal Vaccine: 50+ Years Completed 07/12/2018, 07/08/2017, 07/28/2016 [facility]-Hepatitis A Vaccines Aged Out 03/09/2019, 04/29 No longer eligible based on patient's age to complete this topic [facility]-Zoster Vaccines Completed 09/12/2020, 05/02/2020, 01/15/2017 [facility]-RSV Vaccine: 60+ Years or Completed 03/12/2023 [facility]-Obesity Intervention Completed 025, 08/21/2023, 06/27/2022 HPV Vaccines Aged Out No longer eligi ble based on patient's age to complete this topic [facility]-HIB Vaccines Aged Out No longer e ligible based on patient's age to complete this topic [facility]-IPV Vaccines Aged Out No longer e ligible based on patient's age to complete this topic [facility]-Rotavirus Vaccines Aged Out No lo nger eligible based on patient's age to complete this topic Insurance [employer] MEDICARE Care Teams Postal Transportation Clerk Relationship Specialty Start Date End Date Mony Zabala APRN [address] [address] PCP - General 11/09/20 Misa Ceja APRN [address] [facility] [address] [place] [address] Nurse Practitioner Neurosurgery 09/25/21
== END 2025-01-30 23:59 | disposition home or self-care (01) ==
LOC: RAD 15:30
PROVIDERS: PCP Nurse Practitioner Family; Visit Provider Nurse Practitioner Family
DX: M25.78 Osteophyte, vertebrae (principal); M41.86 Other forms of scoliosis, lumbar region; M43.26 Fusion of spine, lumbar region; M54.50 Low back pain, unspecified
CPT/HCPCS: 72110; 72220

== ENCOUNTER 2025-03-22 09:48 | Outpatient (CLI) | payer MEDICARE, SELFPAY ==
--- OUTSIDE RECORDS SUMMARY | 2023-04-20 08:30 | XMS_ITS | Continuity of Care Document ---
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 Name Role Phone Bedolla ODChloe Unavailable Unavailable Allergies, Adverse Reactions, Alerts Substance Reaction Status Criticality Sulfa (Sulfonamide Antibiotics) HivesHives Active No Information Medications Medication Instructions Dosage Effective Dates (start - stop) Status Comments omeprazole 40 mg capsule,delayed release take 1 capsule by oral route every day before a meal 40 MG - Active losartan 100 mg tablet take 1 tablet by oral route every day 100 MG - Active pravastatin 40 mg tablet take 1 tablet by oral route every day 40 MG - Active methocarbamol 500 mg tablet take 1 tablet by oral route every day 500 MG - Active levocetirizine 5 mg tablet take 1 tablet by oral route every day in the evening 5 MG - Active trazodone 50 mg tablet take 1 tablet by oral route every day at bedtime 50 MG - Active Fosamax 70 mg tablet take 1 tablet by oral route every week in the morning, at least 30 min before first food, beverage, or medication of day 70 MG - Active Singulair 10 mg tablet take 1 tablet by oral route every day in the evening 10 MG - Active Zyrtec 10 mg capsule take 1 tablet by oral route every day 1 tablet - Active zinc amino acid chelate 50 mg tablet - Active Vitamin C 500 mg capsule,extended release - Active Vitamin B-12 1,000 mcg tablet take 1 tablet by oral route every day 1 tablet - Active Vitamin D3 25 mcg (1,000 unit) tablet take 1 tablet by oral route 3 times every day 1 tablet - Active CRANBERRY (unknown strength) Not Available - Active ARNUITY ELLIPTA (unknown strength) Not Available - Active Proair Digihaler 90 mcg/actuation aerosol powder breath act, sensor inhale 2 puff by inhalation route every 4 - 6 hours as needed - Active Vitamin C 500 mg tablet - Active Procedures Procedure Date EYE EXAM, Comprehensive, Established Mar CORNEAL TOPOGRAPHY SPECIAL ANTERIOR SEGMENT LULU TOGRAPHY (ENDOTHELIAL CELL COUNT) W/INTERPRET&REPORT OFFICE/OUTPATIENT VISIT, [facility] CORNEAL TOPOGRAPHY SPECIAL ANTERIOR SEGMENT LULU TOGRAPHY (ENDOTHELIAL CELL COUNT) W/INTERPRET&REPORT Advance Directives Directive Yes / No Effective Date File Name No Information Encounters Encounter Description Practice Location Reason(s) For Visit Diagnoses Date Provider Providers Copied on Encounter [facility], [address] [place] [address], [address] [place] [address], tel:[phone] [place] Fuchs (chief complaint) FuchsDry AMD, Left Eye, Early StagePseudophakiaDer matochalasis of right upper eyelidDermatochalasi s of left upper eyelid Mar- 3 Chioma [place]. [address] [place] [address], [id number] , . tel:[phone] Referring Provider: Family & Friends A. OFFICE/OUTPA TIENT VISIT, [facility], [address] [place] [address], [id number], tel:[phone] [place] Fuchs (chief complaint) FuchsDry AMD, Left Eye, Early StageCorneal HazePseudophakia Sep- 0 3 Bedollaabhi [place]. [address] [place] [address], [id number] , . tel:[phone] Referring Provider: Family & Friends A. Family History Family Member Type Diagnosis Age At Onset Sister Problem (finding) Family history of Hyper tension Brother Problem (finding) Family history of Cance r, unknown Mother Problem (finding) Family history of Diabe kia mellitus Father Problem (finding) Family history of Cance r, unknown Brother Problem (finding) Family history of Diabe kia mellitus Payers Payer name Insurance type Covered constitution party ID Authoriza tion(s) [employer] Choice PPO MEDICARE H ealth Plan CI [id number] Social History Type Description Quantity Date Captured Comments Alcohol Use Details Unknown Caffeine Use Details Unknown Tobacco Use Status No Information Smoking Status No Information Sex Female Chief Complaint And Reason For Visit From encounter dated '04/20/2023 12:30'. Fuchs (chief complaint). Description: Pt presents for a 6 month Fuchs ck. Pt states her OD said herFuch's seems to be better managed. Pt also mentions very rare floaters that clear up on their own, and states [place] has been stable. Pt denies flashes and halos, and mentions how taking off her glasses helps her see crisper. Triamolone Ointment PRN. Reason For Referral Reason For Referral No Information History Of Present Illness Encounter Date Complaint History Of Prese nt Illness Fuchs Pt presents for a 6 month Fuchs ck. Pt states her OD said her Fuch's seems to be better managed. Pt also mentions very rare floaters that clear up on their own, and states VA has been stable. Pt denies flashes and halos, and mentions how taking off her glasses helps her see crisper. Triamolone Ointment PRN. Fuchs Pt presents toda y for second opinion on Fuchs, pt states having Cataracts sx, the a laser procedure after, pt states her vision was not doing as well after and she got diagnosed with Fuchs. CP Sodium chloride TID OU Functional Status Date Functional Assessmen t No Information Instructions Date Instruction Additional Infor mation Impression/Plan Impression/Plan Related to Pseud ophakia Impression/Plan Related to Dry A MD, Left Eye, Early Stage Impression/Plan 6 month Fuchs ck/pent/endos/Oct m Related to Pseudophakia Impression/Plan Related to Pseud ophakia Impression/Plan Related to Corne al Haze Impression/Plan Related to Dry A MD, Left Eye, Early Stage Impression/Plan Related to Fuchs Assessments Type Assessment Date assessment Fuchs assessment Dry AMD, Left Eye, Early Stage O assessment Pseudophakia impression Dry AMD, Left Eye, Early Stage: H35.3121 assessment Dermatochalasis of right upper e yelid assessment Dermatochalasis of left upper ey elid impression Pseudophakia: Z96.1 Patient Care Teams Name Effective Dates (start - stop) Status Members No Information
--- OUTSIDE RECORDS SUMMARY | 2025-03-22 09:59 | XMS_ITS | Encounter Summary ---
Author Organization [facility] Address [address] [place] [address] Care Team Providers Care Center Director Lead Teacher Name Role Phone Mony Zabala SHEET METAL WORKER APPRENTICE Primary Care Provider [phone] Misa Ceja SHEET METAL WORKER APPRENTICE Unavailable [phone] Reason for Visit * Reason Comments Med Refill Encounter Details Date Type Department Care Team (Late st Contact Info) Description 03/10/2025 Refill [facility] [address] [place] [address] Cecilia Bean, SHEET METAL WORKER APPRENTICE [address] [address] Age-related osteoporosis without current pathological fracture; Vitamin D deficiency Social History Tobacco Use Types Packs/Day Years Used Date Smoking Tobacco: Never Smokeless Tobacco: Never Alcohol Use Standard Drinks/Week Comments Never 0 (1 standard drink = 0.6 oz pur e alcohol) Comments No Sex and Gender Information Value Date Recorded Sex Assigned at Not on file Legal Sex Female 7:28 PM EDT Gender Identity Not on file Sexual Orientation Not on file documented as of this encounter Plan of Treatment Upcoming Encounters Date Type Department Care Team (Late Contact Info) Description 06/28/2025 3:30 PM EST Ovarian Cancer Screening [facility] [address] [facility], 3rd [place] [phone] 09/22/2025 10:40 AM EDT Office Visit [facility] [address] [place] [address] Cecilia Bean APRN [address] [facility] [address] [place] [address] documented as of this encounter Visit Diagnoses Diagnosis Age-related osteoporosis without current pathological fracture Vitamin D deficiency documented in this encounter Additional Health Concerns Assessment Noted Time A fall risk assessment has been complete d for the patient 08/21/2023 12:03 PM EST A Body Mass Index follow-up plan has been documented for the patient 09/09/2024 12:02 PM EDT documented as of this encounter Care Teams Center Director Lead Teacher Relationship Specialty Start Date End Date Mony Zabala APRN [facility] [address] [address] PCP - General 11/09/20 Misa Ceja APRN [address] [facility] [address] [place] [address] Nurse Practitioner Neurosurgery 09/25/21 documented as of this encounter
--- OUTSIDE RECORDS SUMMARY | 2025-03-22 09:59 | XMS_ITS | Encounter Summary ---
Author Organization [facility] Address [address] [place] [address] Care Team Providers Care Senior Vice President Name Role Phone Mony Zabala EXPLOSIVES HANDLER Primary Care Provider [phone] Msia Ceja EXPLOSIVES HANDLER Unavailable Encounter Details Date Type Department Care Team (Late st Contact Info) Description 01/31/2025 Telephone [facility] [address] [place] [address] Leana Culver Social History Tobacco Use Types Packs/Day Years [...] on file documented as of this encounter Miscellaneous Notes * Telephone Encounter - Leana Culver - 01/31/2025 3:30 PM EDT Pt called stating that she received a phone call from [facility] about setting up her prolia injection. She stated that she wasn't aware about starting prolia at her last visit. I explained to her Cecilia Bean plan and her follow up in 1 year with repeat dexa scan. Pt did discuss it with her PCP and they agreed with the prolia injection. I told her that [facility] will get it approved through her insurance and then she will be contacted by [facility] to set up her prolia injection. documented in this encounter Plan of Treatment Upcoming Encounters Date Type Department Care Team ([facility] st Contact Info) Description 06/28/2025 3:30 PM EST Ovarian Cancer Screening [facility] [address] [place] [address] 09/22/2025 10:40 AM EDT Office Visit [facility] [address] [facility] [address] [address] Cecilia Bean APRN [address] [facility] [address] [place] [address] documented as of this encounter Visit Diagnoses Not on filedocumented in this encounter Additional Health Concerns Assessment Noted Time A fall risk assessment has been complete d for the patient 08/21/2023 12:03 PM EST A Body Mass Index follow-up plan has been documented for the patient 09/09/2024 12:02 PM EDT documented as of this encounter Care Teams Senior Vice President Relationship Specialty Start Date End Date Mony Zabala APRN [address] [facility] [address] [place] [address] PCP - General 11/09/20 Misa Ceja APRN [address] [facility] [address] [place] [address] Nurse Practitioner Neurosurgery 09/25/21 documented as of this encounter
--- OUTSIDE RECORDS SUMMARY | 2025-03-22 09:59 | XMS_ITS | Clinical Summary ---
Author Organization [facility] Address [address] [place] [address] Care Team Providers Care Cut Plug Packer Name Role Phone Mony Zabala NOVELTY WORKER Primary Care Provider [phone] Misa Ceja NOVELTY WORKER Unavailable [phone] Allergies Active Allergy Reactions Criticality Noted Date [...] nasal spray fluticasone propionate 50 mcg/actuation nasal spray,suspension As needed Active losartan (Cozaar) 100 MG [...] THURSDAY, THURSDAY, AND Thursday 4 Active nitrofurantoin, macrocrystal-mo nohydrate, (Macrobid) 100 MG capsule TAKE 1 CAPSULE BY MOUTH TWICE DAILY FOR 5 DAYS 4 Active sodium chloride 5 % ophthalmic ointment Apply 1 Application to both eyes every night. Active Multiple Vitamins-Minera ls (OCUVITE ADULT 50+ PO) Take 1 tablet by mouth in the evening. Active Active Problems Problem Noted Date Diagnosed Date Osteoporosis 09/09/2024 Encounters Date Type Department Care Team Description 03/10/2025 Refill [facility] [address] [facility] [address] [place] [address] Cecilia Bean APRN Age-related osteoporosis without current pathological fracture; Vitamin D deficiency 02/24/2025 Telephone [facility] [address] [place] [address] Elsi Malik CPhT 01/31/2025 Telephone [facility] [address] [place] [address] Leana Culver from Last 3 Months Immunizations Immunization Administration Dates Next Due Hep [...] [facility] [address] [place] [address] 09/22/2025 10:40 AM EDT Office Visit [facility] [address] [place] [address] Cecilia Bean, NOVELTY WORKER [address] [facility] [address] [place] [address] Health Maintenance Due Date Last Done Comments [facility]-Bone Density Scan 1950 [facility]-Depression Screening 1950 [facility]-Hepatitis C Screening 1950 [facility]-Medicare Annual Wellness (AWV) 1950 [facility]-Infant/Child/Adol SDOH Screenings 1950 [facility]- SDOH Screenings 1969 [facility]-Adult SDOH Screenings 1969 CT Colonography 02/09/1996 Colonoscopy 02/09/1996 FIT-DNA 02/09/1996 FIT 02/09/1996 FOBT 02/09/1996 Sigmoidoscopy 02/09/1996 [facility]-Colorectal Cancer Screening 02/09/1996 [facility]-Breast Cancer Screening 2001 [id number] Vaccine ( season) 2025 03/13/2024, 03/27/2023, 07/09/2022, Additional history exists [facility]-Influenza [...] this topic Insurance [employer] MEDICARE Care Teams Cut Plug Packer Relationship Specialty Start Date End Date Mony Zabala APRN [address] [facility] [address] [place] [address] PCP - General 11/09/20 Misa Ceja APRN [address] [facility] [address] [place] [address] Nurse Practitioner Neurosurgery 09/25/21
--- OUTSIDE RECORDS SUMMARY | 2025-03-22 09:59 | XMS_ITS | Encounter Summary ---
Author Organization [facility] Address [address] [place] [address] Care Team Providers Care Drafting Layout Man Name Role Phone Mony Zabala ENTRY MANAGER Primary Care Provider [phone] Kristina Cejayn Yanelis ENTRY MANAGER Unavailable [phone] Encounter Details Date Type Department Care Team ([facility] Contact Info) Description 02/24/2025 Telephone [facility] [address] [place] [phone] Elsi Malik, Ana Social History Tobacco Use Types Packs/Day Years [...] Upcoming Encounters Date Type Department Care Team ([facility] Contact Info) Description 06/28/2025 3:30 PM EST Ovarian Cancer Screening [facility] [address] [place] [address] 09/22/2025 10:40 AM EDT Office Visit [facility] [address] [place] [address] Cecilia Bean, ENTRY MANAGER [address] [facility] [address] [place] [address] documented as of this encounter Visit Diagnoses Not on filedocumented in this encounter Additional Health Concerns Assessment Noted Time A fall risk assessment has been complete d for the patient 08/21/2023 12:03 PM EST A Body Mass Index follow-up plan has been documented for the patient 09/09/2024 12:02 PM EDT documented as of this encounter Care Teams Drafting Layout Man Relationship Specialty Start Date End Date Mony Zabala APRN [facility] [place] [address] PCP - General 11/09/20 Misa Ceja APRN [id number] [place] [address] Nurse Practitioner Neurosurgery 09/25/21 documented as of this encounter
[2025-03-22] MEDS: DENOSUMAB 60 MG/ML SYRINGE SUBCUT (10:07)
[2025-03-22 10:22] VITALS: BP 154/80; PULSE 64; RESP 18; O2SAT 97
== END 2025-03-22 23:59 | disposition home or self-care (01) ==
PROVIDERS: PCP Nurse Practitioner Family; Visit Provider Nurse Practitioner
DX: M81.0 Age-related osteoporosis without current pathological fracture (principal)
CPT/HCPCS: 96372; J0897